=== PATIENT | female | born 1950 | race Caucasian/White ===

== ENCOUNTER 2020-08-12 13:36 | Outpatient (REF) | payer MEDICARE, SELFPAY ==
--- NOTE | 2020-08-12 13:43 | MM_ITS ---
EXAMINATION: MM SCREENING DIGITAL BREAST TOMOSYNTHESIS, BILATERAL CLINICAL INFORMATION: Screening. Asymptomatic. The lifetime risk of breast cancer based on the Tyrer-Cuzick Model is 3%. COMPARISON: Mammography: 02/04/2019, 01/24/2018, 01/16/2018, 01/03/2017 TECHNIQUE: Digital breast tomosynthesis is performed in both the craniocaudal and mediolateral oblique views along with computer-aided detection (CAD). Synthesized 2D images are generated from the tomosynthesis. FINDINGS: There are scattered areas of fibroglandular density (ACR BI-RADS breast composition Category b). There are no significant masses, abnormal calcifications, or other abnormalities. There is a biopsy clip marker again noted central right breast. Bilateral scattered round and some coarse calcifications are again present. There are no significant changes. MM/MM tomosynthesis screening BI IMPRESSION: No mammographic evidence of malignancy. ASSESSMENT: BI-RADS 2: Benign RECOMMENDATION: Routine annual mammography screening. This patient's information was entered into a reminder system with a target due date for their next mammogram.
== END 2020-08-12 13:37 | disposition home or self-care (01) ==
LOC: HO.MAMMO 13:36
PROVIDERS: PCP Internal Medicine; Visit Provider Internal Medicine
DX: Z12.31 Encounter for screening mammogram for malignant neoplasm of breast (principal)
CPT/HCPCS: 77063; 77067

== ENCOUNTER 2020-09-17 09:39 | Outpatient (REF) | payer MEDICARE, SELFPAY | END 2020-09-17 09:40 | disposition home or self-care (01) | LOC: HO.LAB 09:39 | PROVIDERS: Visit Provider Internal Medicine | DX: Z20.822 Contact with and (suspected) exposure to COVID-19 (principal) | CPT/HCPCS: 36415; C9803; U0003; U0005 ==

== ENCOUNTER 2021-03-19 08:59 | Outpatient (REF) | payer MEDICARE, SELFPAY ==
--- NOTE | ~2021-03-19 | MM_ITS ---
EXAMINATION: BONE DENSITOMETRY CLINICAL INDICATION: Osteopenia. COMPARISON: Previous BD dated 01/11/2018 and baseline BD dated 06/09/2006. TECHNIQUE: Using a [employer] DXA System (software version: 13.1) manufactured by [employer], dual-energy x-ray absorptiometry was performed of the spine and left hip. The images are of good technical quality. Summary results are attached. FINDINGS: AP SPINE L1-L4: Current: BMD 1.153 g/cm2, Z-score 1.3, T-score -0.2, normal, 4.8% increase from previous, 9.1% increase from baseline (<5% change is not significant). Prior: BMD 1.100 g/cm2. Baseline: BMD 1.057 g/cm2. LEFT FEMUR, NECK: Current: BMD 0.855 g/cm2, Z-score 0.3, T-score -1.3, osteopenia. Prior: BMD 0.769 g/cm2. Baseline: BMD 0.880 g/cm2. LEFT FEMUR, TOTAL: Current: BMD 1.025 g/cm2, Z-score 1.6, T-score 0.1, normal, 12.5% increase from previous, 1.2% decrease from baseline (<5% change is not significant). Prior: BMD 0.911 g/cm2. Baseline: BMD 1.037 g/cm2. IDENTIFIED RISK FACTORS: Low calcium intake, secondary osteoporosis. HISTORY OF FRACTURE: None listed. MEDICATIONS: Calcium supplements or multivitamin. MM/XR DEXA axial skeleton IMPRESSION: 1. DIAGNOSIS: Osteopenia based on the lowest T-score value of -1.3 in the femoral neck applying World Health Organization criteria. 2. 10-YEAR FRACTURE RISK PREDICTION, FRAX: Major osteoporotic fracture (clinical spine, forearm, hip or shoulder) 5.3%. Hip fracture 0.7%. 3. Treatment Recommendations: NOF guidelines recommend consideration for treatment in postmenopausal women and men age 50 and older presenting with the following: -A hip or vertebral (clinical or morphometric) fracture. -T-score less than or equal to -2.5 at the femoral neck or spine after appropriate evaluation to exclude secondary causes. -Low bone mass at the hip or spine and a 10-year fracture probability by FRAX of greater than or equal to 3% for hip fracture or greater than or equal to 20% for major osteoporotic fracture based on the [place] adapted WHO algorithm. 4. Other Recommendations: All treatment decisions require clinical judgment and consideration of individual patient factors, including patient preferences, comorbidities, previous drug use, risk factors not captured in the FRAX model (e.g. frailty, falls, vitamin D deficiency, increased bone turnover, interval significant decline in bone density) and possible under or overestimation of fracture risk by FRAX. Additional medical evaluation for secondary cause of low bone mineral density may be appropriate. FUTURE SCAN RECOMMENDATION: People with diagnosed cases of osteoporosis or at high risk for fracture should have regular bone mineral density tests. For patients eligible for Medicare, routine testing is allowed once every 2 years. The testing frequency can be increased to one year for patients who have rapidly progressing disease, those who are receiving or discontinuing medical therapy to restore bone mass, or have additional risk factors.
== END 2021-03-19 09:00 | disposition home or self-care (01) ==
LOC: HO.MAMMO 08:59
PROVIDERS: PCP Family Medicine; Visit Provider Family Medicine
DX: Z13.820 Encounter for screening for osteoporosis (principal); M85.80 Other specified disorders of bone density and structure, unspecified site; Z79.899 Other long term (current) drug therapy
CPT/HCPCS: 77080

== ENCOUNTER → 2021-08-24 11:56 | Outpatient (BNVA) | payer MEDICARE, SELFPAY | PROVIDERS: PCP Family Medicine; Visit Provider Surgery | DX: Z48.817 Encounter for surgical aftercare following surgery on the skin and subcutaneous tissue (principal) | CPT/HCPCS: 99202 ==

== ENCOUNTER 2021-08-26 11:10 | Outpatient (REF) | payer MEDICARE, SELFPAY ==
--- NOTE | ~2021-08-26 | MM_ITS ---
EXAMINATION: MM SCREENING DIGITAL BREAST TOMOSYNTHESIS, BILATERAL CLINICAL INFORMATION: Screening. Asymptomatic. The lifetime risk of breast cancer based on the Tyrer-Cuzick Model is 2.9%. COMPARISON: Mammography: 08/12/2020 and studies dating back to 09/20/2011 TECHNIQUE: Digital breast tomosynthesis is performed in both the craniocaudal and mediolateral oblique views along with computer-aided detection (CAD). Synthesized 2D images are generated from the tomosynthesis. FINDINGS: The breasts are heterogeneously dense, which may obscure small masses (ACR BI-RADS breast composition Category c). This is stable parenchymal pattern within the right breast without new abnormal dominant mass or suspicious grouping of microcalcifications. Within the retroareolar region of the left breast on mediolateral oblique projection there is a 7 mm density which is poorly circumscribed. Recommend spot compression view and possible ultrasound. MM/MM tomosynthesis screening BI IMPRESSION: Left breast retroareolar lesion for further evaluation as described. ASSESSMENT: BI-RADS 0: Incomplete - Need Additional Imaging Evaluation RECOMMENDATION: 1. Additional views of the left. 2. Targeted ultrasound if warranted after review of the additional views. 3. Radiology department staff will contact the patient for additional imaging.
== END 2021-08-26 11:11 | disposition home or self-care (01) ==
LOC: HO.MAMMO 11:10
PROVIDERS: Visit Provider Family Medicine
DX: Z12.31 Encounter for screening mammogram for malignant neoplasm of breast (principal)
CPT/HCPCS: 77063; 77067

== ENCOUNTER 2021-09-14 08:13 | Outpatient (REF) | payer MEDICARE, SELFPAY ==
--- NOTE | ~2021-09-14 | MM_ITS ---
EXAMINATION: MM DIAGNOSTIC DIGITAL BREAST TOMOSYNTHESIS, LEFT CLINICAL INFORMATION: Recall for asymmetric density on synthesized left CC view at screening 6:00 retroareolar. COMPARISON: Mammography: 08/26/2021, 08/12/2020, 02/04/2019, 01/24/2018 TECHNIQUE: Digital breast tomosynthesis is performed. 2D images are generated from the tomosynthesis. The following views are obtained: Spot CC x2, spot MLO x2. FINDINGS: The breasts are heterogeneously dense, which may obscure small masses (ACR BI-RADS breast composition Category c). Additional views show no persistent asymmetric density on synthesized image or tomography. There is no mass or architectural abnormality. Fibroglandular densities are similar to prior studies. Results are discussed with the patient at time of visit, using an supervising floorperson. MM/MM tomosynthesis added views L IMPRESSION: No significant changes from prior exams. ASSESSMENT: BI-RADS 2: Benign RECOMMENDATION: Routine annual mammography screening. This patient's information was entered into a reminder system with a target due date for their next mammogram.
== END 2021-09-14 08:14 | disposition home or self-care (01) ==
LOC: HO.MAMMO 08:13
PROVIDERS: Visit Provider Family Medicine
DX: R92.2 Inconclusive mammogram (principal)
CPT/HCPCS: 77061; 77065

== ENCOUNTER 2022-04-17 14:49 | Emergency (ER) | payer MEDICARE, SELFPAY ==
[2022-04-17 16:43] VITALS: BP 126/70; PULSE 78; RESP 16; O2SAT 97; BMI 27.4
[2022-04-17 18:50] VITALS: BP 128/73; PULSE 68; RESP 18; TEMP 36.3; O2SAT 97
--- NOTE | 2022-04-17 19:14 | ED.GENADULT ---
HPI - General Adult General Chief complaint: Skin/Abscess/Foreign Body Stated complaint: cyst on rectum Time Seen by Provider: 04/17/22 14:54 Source: patient and family Mode of arrival: ambulatory Limitations: no limitations History of Present Illness HPI narrative: 71-year-old female past medical history significant for hypertension, diabetes presenting to the emergency department with swelling, redness to the left labia majora times a week worsening. According to patient patient's family member this started as a small bump and then has progressed to the size it is now, reports pain at site, burning. Denies numbness, tingling, vaginal discharge, fevers, chills, chest pain, shortness of breath, nausea, vomiting, abdominal pain. Tells me she has gotten abscesses in the past throughout her body just never in that location. Patient up-to-date on tetanus shot. Onset (ago): week(s) (1) Related Data Home Medications Medication Instructions Recorded Confirmed alcohol swabs (Alcohol Prep Pads) 0 pad topical 08/24/21 amlodipine 5 mg tablet 5 mg PO DAILY 08/24/21 aspirin 81 mg tablet,delayed 81 mg PO DAILY 08/24/21 release atorvastatin 40 mg tablet 40 mg PO BEDTIME 08/24/21 blood sugar diagnostic (FreeStyle #10 ea 08/24/21 Lite Strips) calcium carbonate 600 mg-vitamin 1 tab PO 08/24/21 D3 10 mcg (400 unit) tablet cephalexin 500 mg capsule 500 mg PO Q12H 08/24/21 cetirizine 10 mg tablet 10 mg PO DAILY 08/24/21 citalopram 20 mg tablet 20 mg PO DAILY 08/24/21 dulaglutide 0.75 mg/0.5 mL mg subcut QWEEK 08/24/21 [facility] ezetimibe 10 mg tablet 10 mg PO DAILY 08/24/21 lancets 33 gauge (TRUEplus Lancets) #100 ea 08/24/21 losartan 100 1 tab PO DAILY 08/24/21 mg-hydrochlorothiazide 25 mg tablet metformin 1,000 mg tablet 1,000 mg PO 08/24/21 metoprolol succinate 25 mg 25 mg PO QAM 08/24/21 tablet,extended release 24 hr omeprazole 20 mg capsule,delayed 20 mg PO DAILY 08/24/21 release Previous Rx's Medication Instructions Recorded cephalexin 500 mg tablet 500 mg PO Q6H 10 days #40 tabs 04/17/22 doxycycline hyclate 100 mg capsule 100 mg PO BID 10 days #20 caps 04/17/22 Allergies Allergy/AdvReac Type Severity Reaction Status Date / Time No Known Allergies Allergy Unverified 04/30/20 16:56 [No Known Allergies*] Review of Systems Review of Systems: Constitutional : No Fever, No Chills, Cardiovascular : No Chest Pain, No SOB Respiratory : No Dyspnea Gastrointestinal : No abdominal pain Musculoskeletal : No Joint Swelling Skin : No rash, No skin laceration, + swelling to labia Neuro : No Weakness, No Numbness Psych : No SI/HI Yes all other systems are reviewed and are negative [facility] Past Medical History Attestation statement: The following information was validated with the patient. Source: old records reviewed and nursing notes reviewed Medical History Diabetes mellitus Epidermal cyst Hypertension Surgical History History of 2 sections Family History Family History Brother Colon cancer Social History Social History Alcohol intake: never Patient Tobacco Use Status: Never used Tobacco Advance Directives: No Advance Directives Information Provided: No Physical Exam ED Vital Signs: Vital Signs - 24 hr 04/17/22 16:43 04/17/22 18:50 Temperature 97.4 F Pulse Rate 78 68 Respiratory Rate 16 18 Blood Pressure 126/70 128/73 Pulse Oximetry 97 97 Oxygen Delivery Method Room Air Room Air BMI result Body Mass Index 27.4 vss Appearance: Alert.? Oriented X3.? No acute distress.? Head: Normocephalic, atraumatic, no step-offs or deformities Eyes: Pupils equal, round and reactive to light.? Neck: Normal inspection.? Neck supple.? CVS: Normal heart rate and rhythm.? Pulses normal.? Respiratory: No respiratory distress.? Breath sounds normal.? Abdomen: Soft and nontender.? Skin: Skin warm and dry.? Normal skin color.? Normal skin turgor.? Extremities: No lower extremity edema.? No calf ttp. 5/5 strength to bilateral upper and lower extremities Sensitive exam: cellulitis to the left labia majora, with induration, it appears as though there is slight purulence coming out from the middle of the left labia majora. Pain with palpation of left labia majora. Neuro: Oriented X 3.? No motor deficit.? No sensory deficit. CN 2-12 intact Course Reevaluation(s) Reevaluation #1: Advised patient to apply warm compresses to the area, patient will be discharged home with doxycycline and Keflex, I explained to patient that this is likely an abscess forming in she may need to come back for further evaluation and treatment. Patient verbalizes understanding and so does family member at the bedside. At this time patient will be discharged home on antibiotics, advised follow-up with PCP and return with any new or worsening symptoms. Time: 19:35 Medical Decision Making [facility] Narrative Medical decision making narrative: 1899 71-year-old female presents with redness, swelling warmth to the left labia majora times a week worsening. Physical examination significant for cellulitis to the left labia majora with induration, it appears as though there is a small area with some purulence that is self draining. Tried doing a bedside fine needle aspiration however unable to express purulence, this is likely cellulitis to the left labia majora or a forming abscess. Medical Records Medical records reviewed: Yes I reviewed the patient's medical records. Lab Data Lab results reviewed: Yes I reviewed the patient's lab results. Critical Care Time Critical Care Time Critical Care Time: No Discharge Plan Discharge Clinical Impression: Cellulitis of labia majora Patient Disposition: Home, Self-Care Additional Instructions: Take your medications as prescribed. If you were prescribed antibiotics today, it is important that you take your medication to their entirety, do not skip any doses, do not finish them early. Follow-up with your primary care provider this week. Return to the emergency department with new or worsening symptoms. Such as fevers, chills, chest pain, shortness of breath, nausea, vomiting, dizziness, headache, vision changes, lethargy In case of emergency call 911 Apply warm compresses to the affected area 3 to 4 times a day. Please take antibiotics as indicated. Hamer radha medicamentos seg?n lo prescrito. Si le recetaron antibi?ticos hoy, es importante que tome richardson medicamento en richardson totalidad, no se salte ninguna dosis, no los termine antes de tiempo. Seguimiento con richardson proveedor de atenci?n primaria esta semana. Regrese al departamento de emergencias con s?ntomas nuevos o que empeoran. [place] fiebre, escalofr?os, dolor de pecho, dificultad para respirar, n?useas, v?mitos, mareos, dolor de eyal, cambios en la visi?n, letargo En simone de emergencia llama al 911 Aplique compresas tibias en el ?chidi afectada de 3 a 4 veces al d?a. Por favor, tome los antibi?ticos seg?n lo indicado. Prescriptions: New doxycycline hyclate 100 mg capsule 100 mg PO BID 10 Days Qty: 20 0RF cephalexin 500 mg tablet 500 mg PO Q6H 10 Days Qty: 40 0RF No Action cetirizine 10 mg tablet 10 mg PO DAILY Trulicity 0.75 mg/0.5 mL pen injector subcut QWEEK metoprolol succinate 25 mg tablet extended release 24 hr 25 mg PO QAM metformin 1,000 mg tablet 1,000 mg PO citalopram 20 mg tablet 20 mg PO DAILY losartan-hydrochlorothiazide 100-25 mg tablet 1 tab PO DAILY (DME) lancets [TRUEplus Lancets] 33 gauge misc See Rx Instructions topical .MEDSUPPLY Qty: 100 Rx Instructions: As directed alcohol swabs [Alcohol Prep Pads] Pads, Medicated 0 pad topical atorvastatin 40 mg tablet 40 mg PO BEDTIME (DME) FreeStyle Lite Strips Strip See Rx Instructions Not Applicable BID Qty: 10 Rx Instructions: As directed calcium carbonate-vitamin D3 600 mg-10 mcg (400 unit) tablet 1 tab PO aspirin 81 mg tablet,delayed release (DR/EC) 81 mg PO DAILY ezetimibe 10 mg tablet 10 mg PO DAILY amlodipine 5 mg tablet 5 mg PO DAILY cephalexin 500 mg capsule 500 mg PO Q12H omeprazole 20 mg capsule,delayed release(DR/EC) 20 mg PO DAILY Referrals: Almita De La O MD [Primary Care Provider] - 2 days Iglesia Lozano MD [Physician] - 1 week Stand Alone Forms: Work/School Release Print Language: Trinidadian
== END 2022-04-17 19:53 | disposition home or self-care (01) ==
PROVIDERS: Emergency Provider Internal Medicine; PCP Family Medicine
DX: N76.2 Acute vulvitis (principal); K62.89 Other specified diseases of anus and rectum; Z79.899 Other long term (current) drug therapy
CPT/HCPCS: 99283

== ENCOUNTER → 2022-08-03 09:36 | Outpatient (BNVA) | payer OTHER, SELFPAY | PROVIDERS: PCP Registered Nurse; Referring Provider Registered Nurse; Visit Provider Physician Assistant Surgical | DX: Z01.818 Encounter for other preprocedural examination (principal); Z80.0 Family history of malignant neoplasm of digestive organs | CPT/HCPCS: 99212 ==

== ENCOUNTER 2022-08-31 13:25 | Outpatient (REF) | payer OTHER, SELFPAY ==
--- NOTE | ~2022-08-31 | MM_ITS ---
EXAMINATION: MM SCREENING DIGITAL BREAST TOMOSYNTHESIS, BILATERAL CLINICAL INFORMATION: Screening. Asymptomatic. The lifetime risk of breast cancer based on the Tyrer-Cuzick Model is 2.8%. COMPARISON: Mammography: 09/14/2021 and studies dating back to 12/25/2015 TECHNIQUE: Digital breast tomosynthesis is performed in both the craniocaudal and mediolateral oblique views along with computer-aided detection (CAD). Synthesized 2D images are generated from the tomosynthesis. FINDINGS: The breasts are heterogeneously dense, which may obscure small masses (ACR BI-RADS breast composition Category c). There is a stable parenchymal pattern of the right breast with scattered calcifications. No new abnormal dominant mass or more suspicious grouping of calcifications identified. Within the deep superomedial aspect of the left breast, there is a density containing indeterminate calcifications for which spot magnification views are recommended in craniocaudal and 90 degree mediolateral views. MM/MM tomosynthesis screening BI IMPRESSION: Left breast density with calcifications for which further evaluation is recommended as described above. ASSESSMENT: BI-RADS 0: Incomplete - Need Additional Imaging Evaluation RECOMMENDATION: 1. Additional views of the left breast 2. Targeted ultrasound if warranted after review of the additional views. 3. Radiology department staff will contact the patient for additional imaging.
== END 2022-08-31 13:26 | disposition home or self-care (01) ==
LOC: HO.MAMMO 13:25
PROVIDERS: PCP Registered Nurse; Visit Provider Registered Nurse
DX: Z12.31 Encounter for screening mammogram for malignant neoplasm of breast (principal)
CPT/HCPCS: 77063; 77067

== ENCOUNTER 2022-09-23 06:38 | Day surgery (SDC) | payer OTHER, SELFPAY ==
[2022-09-23 06:58] VITALS: BP 136/79; PULSE 73; RESP 18; TEMP 36.8; O2SAT 97; BMI 27.8
[2022-09-23 07:05] LABS: Glucose, Whole Blood 123 mg/dL (60-115)
[2022-09-23] MEDS: Lactated Ringers 1,000 ML 50 ML IVCONT (07:16)
--- NOTE | 2022-09-23 07:20 | HO.ANESPROP2 ---
HPI - Anesthesia Eval Consult details Narrative: colonoscopy PMFSH Active Problems Active Problems: All Active Problems (Updated 09/19/22 @ 11:42 by Morelia Malik, RN) Encounter for colonoscopy in patient with family history of colon cancer (Acute) Epidermal cyst (Acute) Hypertension (Acute) Diabetes mellitus (Acute) Past Medical History Medical History (Updated 09/19/22 @ 11:42 by Morelia Malik RN) Arthritis Diabetes mellitus Elevated cholesterol Epidermal cyst Hypertension On beta maricel at home Osteoporosis Family History Family History Brother Colon cancer Paternal Uncle Colon cancer, Onset Age: 93 Family history of problems with anesthesia: No Surgical History Surgical History (Updated 09/19/22 @ 11:42 by Morelia Malik RN) History of 2 sections History of cholecystectomy History of colonoscopy (06/19/17) History of ERCP Hx of breast biopsy History of Problems with Anesthesia: No Social History Social History Alcohol intake: never Patient Tobacco Use Status: Never used Tobacco Are you DNR?: No Advance Directives: No Advance Directives Information Provided: Yes Recently lost weight without trying: No Nutrition Risks: No Nutritional Risk Meds Allergies Allergy/AdvReac Type Severity Reaction Status Date / Time No Known Allergies Allergy Unverified 09/19/22 11:47 [No Known Allergies*] Active Medications: Current Medications Lactated Ringer's (Lr) 1,000 mls @ 50 mls/hr IVCONT .Q20H GUILLERMO Last Admin: 09/23/22 07:16 Dose: 50 mls/hr Home Medications Medication Instructions Recorded Confirmed Last Taken Type alcohol swabs (Alcohol Prep Pads) 0 pad topical 08/24/21 Unknown History amlodipine 5 mg tablet 5 mg PO DAILY 08/24/21 09/19/22 Unknown History aspirin 81 mg tablet,delayed 81 mg PO DAILY 08/24/21 09/19/22 Unknown History release atorvastatin 40 mg tablet 40 mg PO BEDTIME 08/24/21 09/19/22 Unknown History blood sugar diagnostic (FreeStyle #10 ea 08/24/21 Unknown History Lite Strips) calcium carbonate 600 mg-vitamin 1 tab PO 08/24/21 Unknown History D3 10 mcg (400 unit) tablet cetirizine 10 mg tablet 10 mg PO DAILY 08/24/21 09/19/22 Unknown History citalopram 20 mg tablet 20 mg PO DAILY 08/24/21 09/19/22 Unknown History dulaglutide 0.75 mg/0.5 mL 0.75 mg subcut QWEEK 08/24/21 09/19/22 Unknown History subcutaneous pen injector (Trulicity) ezetimibe 10 mg tablet 10 mg PO DAILY 08/24/21 09/19/22 Unknown History lancets 33 gauge (TRUEplus Lancets) #100 ea 08/24/21 Unknown History losartan 100 1 tab PO DAILY 08/24/21 09/19/22 Unknown History mg-hydrochlorothiazide 25 mg tablet metformin 1,000 mg tablet 1,000 mg PO 08/24/21 Unknown History metoprolol succinate 25 mg 25 mg PO QAM 08/24/21 09/19/22 Unknown History tablet,extended release 24 hr omeprazole 20 mg capsule,delayed 20 mg PO DAILY 08/24/21 09/19/22 Unknown History release Exam Exam Date and Time: September 23, 2022 0720 Height,Weight and Vital Signs: Height 5 ft 2 in Weight 68.946 kg Last Vital Signs Temp 98.3 F 09/23/22 06:58 Pulse 73 09/23/22 06:58 Resp 18 09/23/22 06:58 BP 136/79 09/23/22 06:58 Pulse Ox 97 09/23/22 06:58 O2 Del Method 09/23/22 06:58 Pertinent Lab Results Pertinent Lab Results: Laboratory Tests 09/23/22 07:00 POC Glucose 123 H Airway Mallampati Class: II TM Dist: >3cm Neck ROM: Full Heart: rrr Lungs: cta Assessment and Plan Assessment Anesthesia Assessment: Anesthesia Plan Discussed and Chart Reviewed Final Anesthetic Review Family History of Problems with Anesthesia: No History of Problems with Anesthesia: No NPO: Yes ASA Class: III Final Preanesthetic Review: No Changes in Pt Med Stat, Meds/Allgs Chart Reviewed and Anes Risks/Benef Reviewed Patient Risk: Intermediate Procedure Risk: Low Anesthetic Plan Anesthetic Plan: MAC: and Agree w/ Assess. and Plan Disposition: Standard PACU
--- NOTE | 2022-09-23 08:21 | P.HPSUR_ITS ---
Pre-Procedural Eval Section A Date of Service: 09/23/22 Section B Chief Complaint: screening,fam hx Details of Present Illness: HAS family history of colon cancer, undergoes colonoscopy every 5 years Relevant Family History (Specify if Yes): Yes Relevant Social History: None Present Medications: see Short Stay Collaborative assessment Medical History: Significant History ( diabetes, hypertension) Allergies: Allergies Allergy/AdvReac Type Severity Reaction Status Date / Time No Known Allergies Allergy Unverified 09/19/22 11:47 [No Known Allergies*] Review of Systems Sugical H&P ROS: Negative: Constitution, Cardiovascular, Respiratory, Neurologi rubén, Psychiatric, Hem-Onc, Allergic/Immunologic, Gastrointestinal, Genitourinary, Musculoskeletal, Integumentary, Endocrine and Eyes/Ears/Nose/Throat Exam Surgical H&P Exam: Normal: HEENT, Normal: Heart, Normal: Lungs, Normal: Extremities, Normal: Abdomen, Normal: Skin and Normal: Neurological Plan I have reviewed the history and physical and performed a pertinent physical examination on my patient. No changes have occurred unless specified. Time Spent With Patient Time: Total time managing care of this patient today ____ minutes.
--- NOTE | 2022-09-23 09:05 | P.OP_ITS ---
Operative Note Operative Note Date of Service: 09/23/22 Narrative: Preop diagnosiss: Family history of colon cancer Postop diagnosis: The same with normal colonoscopy findings Procedure: Colonoscopy for screening Surgeon: Juan Schultz MD The patient is a 72 year old female with a family history of colon cancer and undergo screening colonoscopy every 5 years. She understood the technique of the procedure as well as the risks, benefits, and alternatives. The patient was brought to the operating room and placed in left lateral decubitus position under monitored anesthesia care. A surgical time-out was done. A full digital rectal exam was done and this did not reveal any s ignificant anal lesions. The tip of the Olympus colonoscope was gently introduced through the anal orifice advanced with insufflation all the way to the cecum. The cecum was intubated. There was note of a lot of looping advancing the scope all the way to the cecum was achieved with some degree of difficulty. The cecum was identified by visualization of the ileocecal valve as well as the appendiceal orifice. The cecal mucosa was unremarkable. The scope was gradually withdrawn with careful examination of the entire colonic mucosa being done with scope withdrawal. The patient had adequate bowel prep so it was unlikely that any lesion may have been missed. The rectum was reached and there were no lesions seen. The anal canal was unremarkable. The scope was then withdrawn completely with desufflation The patient tolerated procedure well. There were no immediate complications. Her next colonoscopy may be in the next 5 years if s is still in good health at that time..
[2022-09-23 09:13] VITALS: BP 107/56; PULSE 88; RESP 18; TEMP 36.8; O2SAT 96
[2022-09-23 09:28] VITALS: BP 111/54; PULSE 77; RESP 16; TEMP 36.7; O2SAT 96
[2022-09-23 09:43] VITALS: BP 131/69; PULSE 80; RESP 16; TEMP 36.7; O2SAT 98
== END 2022-09-23 10:08 | disposition home or self-care (01) ==
PROVIDERS: PCP Registered Nurse; Visit Provider Surgery
PROC: 0DJD8ZZ Inspection of Lower Intestinal Tract, Via Natural or Artificial Opening Endoscopic (ICD-10-PCS; CPT 45378; principal; 2022-09-23 08:20)
DX: Z12.11 Encounter for screening for malignant neoplasm of colon (principal); Z80.0 Family history of malignant neoplasm of digestive organs; I10 Essential (primary) hypertension; E11.9 Type 2 diabetes mellitus without complications; Z79.85 Long-term (current) use of injectable non-insulin antidiabetic drugs; Z79.899 Other long term (current) drug therapy; Z90.49 Acquired absence of other specified parts of digestive tract
CPT/HCPCS: G0105; 82947

== ENCOUNTER 2022-10-17 12:44 | Outpatient (REF) | payer OTHER, SELFPAY ==
--- NOTE | ~2022-10-17 | MM_ITS ---
EXAMINATION: MM DIAGNOSTIC DIGITAL MAMMOGRAPHY, LEFT CLINICAL INFORMATION: Recall from screening for calcifications posterior 11:00 left breast. COMPARISON: Mammography: 08/31/2022, 09/14/2021, 08/26/2021, 08/12/2020 TECHNIQUE: Digital mammography is performed in the following views: Magnification left CC x2, magnification left LM. FINDINGS: The breasts are heterogeneously dense, which may obscure small masses (ACR BI-RADS breast composition Category c). The additional magnification views confirm grouped heterogeneous calcifications posterior 11:00 position. There are some coarse types as well as fine types. On the LM view, they appear circumferentially arranged and possibly related to fibroadenomatous change. Results are discussed with the patient at time of visit, using an motor vehicle assembler. Stereotactic sampling to confirm benignity is recommended. Results called to biomedical equipment support specialist (Lise) for JOSÉ MANUEL Escoto on 10/17/2022. MM/MM added views LT IMPRESSION: Increased heterogeneous calcifications posterior 11:00, possibly fibroadenomatous change. ASSESSMENT: BI-RADS 4: Suspicious (subcategory 4A: Low suspicion for malignancy) RECOMMENDATION: Stereotactic sampling left breast calcifications.
== END 2022-10-17 12:45 | disposition home or self-care (01) ==
LOC: HO.MAMMO 12:44
PROVIDERS: PCP Registered Nurse; Visit Provider Registered Nurse
DX: R92.2 Inconclusive mammogram (principal); R92.1 Mammographic calcification found on diagnostic imaging of breast
CPT/HCPCS: 77065

== ENCOUNTER 2022-10-19 08:54 | Outpatient (REF) | payer OTHER, SELFPAY ==
--- NOTE | ~2022-10-19 | MM_ITS ---
EXAMINATION: STEREOTACTIC TOMOSYNTHESIS-GUIDED VACUUM-ASSISTED BREAST BIOPSY, LEFT SPECIMEN RADIOGRAPH, LEFT POST PROCEDURE DIGITAL MAMMOGRAM, LEFT CLINICAL INFORMATION: Heterogeneous calcifications posterior 11:00, possibly fibroadenomatous change. COMPARISON: Prior mammography, most recent 10/17/2022. TECHNIQUE/PROCEDURE: Hospital provided american sign language interpreter assisted for the consent and throughout the procedure. Informed consent was obtained from the patient after discussion of the benefits, risks, and alternatives to biopsy today. Patient appeared to understand. Gave opportunity for questions. Patient signed consent form. BIOPSY TABLE: [employer] Affirm Prone Biopsy System. LESION: Grouped heterogeneous calcifications posterior upper inner left breast. LOCAL ANESTHESIA: 10 mL carbonated 1% lidocaine; 10 mL 2% lidocaine with epinephrine. DERMATOTOMY: Single skin emily dermatotomy performed. NEEDLE: A-STARiva 9-gauge vacuum assisted core biopsy device. APPROACH: Medial Lateral. TARGETING: Combination of digital breast tomosynthesis and stereotactic digital mammography used for targeting. CORES: 5. CLIP: HandInScanurMark T-shaped marker. SPECIMEN RADIOGRAPH: Specimen radiograph is taken in separate room using digital mammography. The index calcifications are in the excised cores. There are large number calcifications seen grouped in 2 of the cores. POST PROCEDURE UNILATERAL DIGITAL MAMMOGRAM: The post biopsy mammogram is performed in separate room using separate digital mammography equipment from the biopsy procedure. CC and LM views are obtained. The breasts are heterogeneously dense, which may obscure small masses (breast composition category: c). The clip marker is in position. The calcifications are markedly decreased at the biopsy site and no longer clearly visualized. No gross hematoma. The patient tolerated the procedure well. No immediate complications. Home instructions reviewed with the patient. Final pathology results are pending. MM/MM stereotactic biopsy LT IMPRESSION: 1. Digital tomosynthesis-guided core biopsy left breast with clip placement. 2. Specimen radiograph taken and post procedure mammogram. There is satisfactory positioning of the biopsy clip. 3. Final pathology results pending. An addendum report will be issued.
[2022-10-19] MEDS: Lidocaine HCl 1 % 20 ML VIAL 9 ML SUBCUT (10:29)
[2022-10-19] MEDS: Sodium Bicarbonate 8.4% 50 MEQ/50 ML VIAL SUBCUT (10:30)
== END 2022-10-19 08:55 | disposition home or self-care (01) ==
LOC: HO.MAMMO 08:54
PROVIDERS: PCP Registered Nurse; Visit Provider Surgery
DX: R92.1 Mammographic calcification found on diagnostic imaging of breast (principal); Z79.899 Other long term (current) drug therapy
CPT/HCPCS: 19081; 88305; 99202; A4648

== ENCOUNTER → 2022-10-26 09:51 | Outpatient (BNVA) | payer OTHER, SELFPAY | PROVIDERS: PCP Registered Nurse; Visit Provider Surgery | DX: Z12.11 Encounter for screening for malignant neoplasm of colon (principal); R92.1 Mammographic calcification found on diagnostic imaging of breast; Z80.0 Family history of malignant neoplasm of digestive organs | CPT/HCPCS: 99212 ==

== ENCOUNTER 2023-09-01 19:31 | Outpatient (REF) | payer OTHER, SELFPAY | END 2023-09-01 19:32 | disposition home or self-care (01) | LOC: HO.HHCLNP 19:31 | PROVIDERS: Visit Provider Family Medicine | DX: J02.9 Acute pharyngitis, unspecified (principal) | CPT/HCPCS: 87070 ==

== ENCOUNTER 2023-09-21 09:35 | Outpatient (REF) | payer OTHER, SELFPAY ==
--- NOTE | ~2023-09-21 | MM_ITS ---
EXAMINATION: BONE DENSITOMETRY CLINICAL INDICATION: Post menopausal. Risk for bone loss. COMPARISON: Previous BD dated 03/19/2021 and baseline BD dated 06/09/2006. TECHNIQUE: Using a [employer] DXA System (software version: 13.1) manufactured by [employer], dual-energy x-ray absorptiometry was performed of the lumbar spine and left hip. The images are of good technical quality. Summary results are attached. FINDINGS: AP SPINE L1-L4: Current: BMD 1.254 g/cm2, Z-score 2.2, T-score 0.6, normal, 8.8% increase from previous, 18.6% increase from baseline (<5% change is not significant). Prior: BMD 1.153 g/cm2. Baseline: BMD 1.057 g/cm2. LEFT FEMUR, NECK: Current: BMD 0.894 g/cm2, Z-score 0.7, T-score -1.0, normal. Prior: BMD 0.855 g/cm2. Baseline: BMD 0.880 g/cm2. LEFT FEMUR, TOTAL: Current: BMD 0.999 g/cm2, Z-score 1.5, T-score -0.1, normal, 2.5% decrease from previous, 3.7% decrease from baseline (<5% change is not significant). Prior: BMD 1.025 g/cm2. Baseline: BMD 1.037 g/cm2. IDENTIFIED RISK FACTORS: Osteoporosis. Renal disease. Menopause. HISTORY OF FRACTURE: None listed. MEDICATIONS: Vitamin D. MM/XR DEXA axial skeleton IMPRESSION: 1. DIAGNOSIS: Normal bone density based on the lowest T-score value of -1.0 in the femoral neck applying World Health Organization criteria. 2. 10-YEAR FRACTURE RISK PREDICTION, FRAX: According to the guidelines, FRAX calculation should only be performed on patients in the osteopenia bone density category.?Therefore, FRAX was not performed on this patient.? 3. Treatment Recommendations: NOF guidelines recommend consideration for treatment in postmenopausal women and men age 50 and older presenting with the following: -A hip or vertebral (clinical or morphometric) fracture. -T-score less than or equal to -2.5 at the femoral neck or spine after appropriate evaluation to exclude secondary causes. -Low bone mass at the hip or spine and a 10-year fracture probability by FRAX of greater than or equal to 3% for hip fracture or greater than or equal to 20% for major osteoporotic fracture based on the [place] adapted WHO algorithm. 4. Other Recommendations: All treatment decisions require clinical judgment and consideration of individual patient factors, including patient preferences, comorbidities, previous drug use, risk factors not captured in the FRAX model (e.g. frailty, falls, vitamin D deficiency, increased bone turnover, interval significant decline in bone density) and possible under or overestimation of fracture risk by FRAX. FUTURE SCAN RECOMMENDATION: People with diagnosed cases of osteoporosis or at high risk for fracture should have regular bone mineral density tests. For patients eligible for Medicare, routine testing is allowed once every 2 years. The testing frequency can be increased to one year for patients who have rapidly progressing disease, those who are receiving or discontinuing medical therapy to restore bone mass, or have additional risk factors.
--- NOTE | ~2023-09-21 | MM_ITS ---
EXAMINATION: MM SCREENING DIGITAL BREAST TOMOSYNTHESIS, BILATERAL CLINICAL INFORMATION: Screening. Asymptomatic. COMPARISON: Mammography: This study is compared with prior exams dating back to 2019. TECHNIQUE: Digital breast tomosynthesis is performed in both the craniocaudal and mediolateral oblique views along with computer-aided detection (CAD). Synthesized 2D images are generated from the tomosynthesis. FINDINGS: The breasts are heterogeneously dense, which may obscure small masses (ACR BI-RADS breast composition Category c). There are no significant masses, abnormal calcifications, or other abnormalities. There is a tissue marker present in each breast from prior benign percutaneous biopsies. There are a few, bilateral, benign calcifications in each breast. MM/MM tomosynthesis screening BI IMPRESSION: No mammographic evidence of malignancy. ASSESSMENT: BI-RADS BI-RADS 2 - Benign Findings RECOMMENDATION: Routine annual mammography screening. 1 year F/U This examination should not preclude the clinical evaluation of a suspicious palpable abnormality. This patient's information was entered into a reminder system with a target due date for their next mammogram.
== END 2023-09-21 09:36 | disposition home or self-care (01) ==
LOC: HO.MAMMO 09:35
PROVIDERS: PCP Nurse Practitioner Family; Visit Provider Nurse Practitioner Family
DX: Z12.31 Encounter for screening mammogram for malignant neoplasm of breast (principal); Z13.820 Encounter for screening for osteoporosis; Z78.0 Asymptomatic menopausal state; Z91.89 Other specified personal risk factors, not elsewhere classified
CPT/HCPCS: 77063; 77067; 77080

== ENCOUNTER → 2023-09-21 10:30 | Outpatient (BNV) | payer OTHER, SELFPAY | PROVIDERS: PCP Nurse Practitioner Family; Visit Provider Radiology Diagnostic Radiology | DX: Z12.31 Encounter for screening mammogram for malignant neoplasm of breast (principal) | CPT/HCPCS: 77063; 77067 ==

== ENCOUNTER 2023-11-14 13:17 | Outpatient (REF) | payer OTHER, SELFPAY ==
--- NOTE | ~2023-11-14 | XR_ITS ---
EXAMINATION: XR LUMBOSACRAL SPINE CLINICAL INFORMATION: Bilateral lower back pain. COMPARISON: None available. TECHNIQUE: AP and lateral views of the lumbar spine and lateral view of the lumbosacral junction. FINDINGS: There is moderate degenerative disc disease at T11-T12. There is a very mild T12 upper endplate compression fracture. A moderate L1 upper endplate compression fracture is seen. There is a very mild L4 upper endplate compression fracture. The remaining disc spaces are well-maintained. The posterior elements are intact. The paravertebral soft tissues are unremarkable. There are right upper quadrant surgical clips. XR/XR lumbar spine 2-3V IMPRESSION: 1. A moderate L1 upper endplate compression fracture is seen, and very mild T12 and L4 upper endplate compression fractures are seen. 2. There is moderate degenerative disc disease at T11-T12.
== END 2023-11-14 13:18 | disposition home or self-care (01) ==
LOC: HO.HHCX 13:17
PROVIDERS: Visit Provider Family Medicine
DX: M54.50 Low back pain, unspecified (principal)
CPT/HCPCS: 72100

== ENCOUNTER 2024-01-30 11:18 | Outpatient (RCR) | payer OTHER, SELFPAY | END 2024-03-25 15:56 | disposition home or self-care (01) | LOC: HO.PT 11:18 | PROVIDERS: PCP Nurse Practitioner Family; Visit Provider Physician Assistant | DX: M54.50 Low back pain, unspecified (principal) | CPT/HCPCS: 97110; 97161; 97535 ==

== ENCOUNTER 2024-02-16 10:09 | Outpatient (REF) | payer OTHER, SELFPAY ==
[2024-02-16 11:14] LABS: MANUAL DIFF FLAG NO
[2024-02-16 11:31] LABS: Basophils Absolute Auto 0.1 X10*3/uL (0.0-0.2); Basophils Percent Auto 0.7 % (0-2); Eosinophils Absolute Auto 0.1 X10*3/uL (0.0-0.4); Eosinophils Percent Auto 1.7 % (0-4); Hematocrit 37.1 % (37.0-47.0); Imm Gran Abs Auto 0.03 X10*3/uL (0.00-0.03); Imm Gran Pct Auto 0.4 % (0.0-0.4); Lymphocytes Absolute Auto 1.8 X10*3/uL (1.2-4.9); Lymphocytes Percent Auto 24.4 % (20-40); Mean Corpuscular HGB Conc 32.3 g/dl (31.0-35.0); Mean Corpuscular Hemoglobin 29.8 pg (27.0-33.0); Mean Corpuscular Volume 92.1 fL (80.0-98.0); Mean Platelet Volume 9.5 fL (9.4-12.3); Monocytes Absolute Auto 0.4 X10*3/uL (0.1-1.2); Neutrophils Absolute Auto 4.8 x10*3/uL (2.0-8.3); Neutrophils Percent Auto 66.8 % (45-73); Platelet Count 185 X10*3/uL (160-400); Red Blood Count 4.03 X10*6/uL (4.20-5.50); Red Cell Distribution Width 13.1 % (11.0-16.0); White Blood Count 7.2 X10*3/uL (4.8-10.8)
[2024-02-16 11:40] LABS: Alanine Aminotransferase 15 U/L (0-31); Albumin Level 4.4 g/dL (3.5-5.0); Alkaline Phosphatase 56 U/L (39-117); Anion Gap 12 (12-20); Aspartate Amino Transferase 19 U/L (5-31); Bilirubin Total 0.5 mg/dL (0.0-1.0); Blood Urea Nitrogen 16 mg/dL (9-16); Calcium 10.2 mg/dL (8.4-10.2); Carbon Dioxide 28 mmol/L (22-29); Chloride 105 mmol/L (96-108); Cholesterol 146 mg/dL (<200); Estimated Glomerular Filt Rate 60; Glucose Random 98 mg/dL (60-115); HDL Cholesterol 61 mg/dL (>40); LDL Cholesterol Calculated 65 mg/dL (<100); Potassium 3.9 mmol/L (3.3-5.1); Sodium 141 mmol/L (135-145); Total Protein 7.6 g/dL (6.5-8.0); Triglycerides 101 mg/dL (<150)
[2024-02-16 11:58] LABS: Creatinine Urine 132.99 mg/dL; Microalbum/Creatinine Ratio Ur 11.2 ug/mg cr (<30); Vitamin B12 342 pg/mL (200-900)
== END 2024-02-16 10:10 | disposition home or self-care (01) ==
LOC: HO.HHCL 10:09
PROVIDERS: Visit Provider Nurse Practitioner Family
DX: E11.9 Type 2 diabetes mellitus without complications (principal)
CPT/HCPCS: 36415; 80053; 80061; 82043; 82570; 82607; 85025

== ENCOUNTER 2024-09-26 09:37 | Outpatient (REF) | payer OTHER, SELFPAY ==
--- OUTSIDE RECORDS SUMMARY | 2024-09-26 10:10 | XMS_ITS | Clinical Summary ---
Author Organization [employer] Address [address] [facility] [address] [place] [address] Care Team Providers Care Remote Operations Producer Name Role Phone Kerrie Wagner MD Primary Care Provider + Allergies No known active allergies Medications Calcium Carb-Cholecalci ferol 600-10 MG-MCG tabletIndicatio ns:Osteopenia of neck of left femur Take 1 tablet by mouth in the morning. TAKE 1 TABLET BY MOUTH EVERY MORNING 90 tablet 024 2024 Active Alcohol Swabs (SM Alcohol Prep) 70 % padsIndications :Type 2 diabetes mellitus with other specified complication, without long-term current use of insulin ([facility]) USE TWICE DAILY 100 each Active TRUEplus Lancets 33G miscIndications :Type 2 diabetes mellitus with other specified complication, without long-term current use of insulin ([facility]/HCC) TEST BLOOD SUGAR TWICE DAILY 100 each Active semaglutide (Ozempic, 0.25 or 0.5 MG/DOSE,) 2 MG/1.5ML solution pen-injectorInd ications:Type 2 Diabetes Mellitus Inject 0.5mg subcutaneously q week after 1.5 mL Active Diclofenac Sodium 1 % gel Apply 2 g topically if needed in the morning, at noon, in the evening, and at bedtime (pain). 150 g 1 Active citalopram (CeleXA) 20 MG tabletIndicatio ns:Moderate episode of recurrent major depressive disorder (CMS/HCC) TAKE 1 TABLET BY MOUTH EVERY MORNING 90 tablet 3 Active losartan-hydroC HLOROthiazide (Hyzaar) 100-25 MG tablet Take 1 tablet by mouth in the morning. 90 tablet 3 024 Active baclofen (Lioresal) 10 MG tablet TAKE 1/2 TABLET BY MOUTH THREE TIMES DAILY IN THE MORNING, AT NOON, AND AT BEDTIME NEEDED FOR MUSCLE SPASMS 30 tablet 1 024 Active amLODIPine (Norvasc) 5 MG tabletIndicatio ns:Primary hypertension TAKE 1 TABLET BY MOUTH EVERY EVENING 90 tablet 1 024 Active Aspirin Low Dose 81 MG EC tablet TAKE 1 TABLET BY MOUTH EVERY MORNING 90 tablet 3 024 Active ezetimibe (Zetia) 10 MG tablet TAKE 1 TABLET BY MOUTH EVERY EVENING 90 tablet 3 024 Active acetaminophen (Tylenol 8 Hour) 650 MG ER tablet TAKE 1 TABLET BY MOUTH EVERY 8 HOURS NEEDED FOR MILD PAIN 40 tablet 1 024 Active atorvastatin (Lipitor) 40 MG tablet TAKE 1 TABLET BY MOUTH EVERY EVENING 90 tablet 025 Active cetirizine (ZyrTEC) 10 MG tabletIndicatio ns:Seasonal allergic rhinitis, unspecified trigger TAKE 1 TABLET BY MOUTH EVERY MORNING NEEDED 90 tablet 1 025 Active metFORMIN (Glucophage) 1000 MG tablet TAKE 1 TABLET BY MOUTH TWICE DAILY IN THE MORNING AND IN THE EVENING WITH FOOD 180 tablet 025 Active metoprolol succinate XL (Toprol-XL) 25 MG 24 hr tablet TAKE 1 TABLET BY MOUTH EVERY MORNING 90 tablet 025 Active FREESTYLE LITE test stripIndication s:Type 2 diabetes mellitus with diabetic polyneuropathy, without long-term current use of insulin ([facility]) TEST BLOOD SUGAR TWICE DAILY 50 strip 025 Active glucose blood (FREESTYLE LITE) test stripIndication s:Type 2 diabetes mellitus with diabetic polyneuropathy, without long-term current use of insulin ([facility]) TEST BLOOD SUGAR TWICE DAILY 50 strip 024 2024 Discontinued Active Problems Problem Noted Date Diagnosed Date Periorbital cellulitis 05/06/2024 Assessment & Plan (05/08/2024 6:26 PM EDT): See above, will treat with keflex Blepharoconjunctivitis of both eyes 05/06/2024 Assessment & Plan (05/08/2024 6:26 PM EDT): While this may be allergic it is rapidly progressing, Will treat for possible cellulitis, Rtc in 7 days sooner should symptoms worsen Thrush of mouth and esophagus 05/06/2024 Assessment & Plan (05/08/2024 6:27 PM EDT): Suspect thrush may be contributing to sore throat, Rx as written below Sore throat 05/06/2024 Missing teeth, acquired 05/10/2023 Tipped teeth 05/10/2023 Dental caries 05/10/2023 Dental abscess 05/10/2023 Breast calcification, left 02/22/2023 Overview (03/26/2023): 10/17/22; BI-RADS 4: Suspicious (subcategory 4A: Low suspicion for malignancy) RECOMMENDATION: Stereotactic sampling left breast calcifications. 10/19/22: Biopsy left grouped heterogenous calcifications at he 11 o'clock Left breast; performed 10/26/22: Pathology sclerosis fibroadenoma; benign. Repeat routine mammogram screening 10/2023 Health care maintenance 11/23/2022 Overview (02/22/2023): Immunizations: PCV20 11/23/22, Tdap 03/01/22. Due for Hep B booster series, Dose #1 02/22/23 HIV: 02/15/22 Nonreactive Hep C: 11/23/22 Nonreactive Hepatitis B: 11/18/22 no surface antibodies. Due Booster series. Pap Smear: No records. Discuss at followup Shared decision-making guidelines. ACS: age 25-65 HPV swab every 5 years. USPSTF: age 21-25 cytology only q 3 y; age 25-29 cytology w/ reflex HPV q 3 y; age 30-65 PAP w/ HPV cotest q 5 years. Mammogram: 10/17/22; BI-RADS 4: Suspicious (subcategory 4A: Low suspicion for malignancy) RECOMMENDATION: Stereotactic sampling left breast calcifications. Scheduled for 10/19/22 10/19/22: Biopsy left grouped heterogenous calcifications at he 11 o'clock Left breast; performed 10/26/22: Pathology sclerosis fibroadenoma; benign. Repeat routine mammogram screening 10/2023 BMD 03/19/21 T score -1.3 left femur neck. Repeat in 2-3 years. Colonoscopy: Referred 07/12/22. Performed 09/28/22; normal. Family hx of colon cancer brother recommended colonoscopy every 5 years. Eye exam: up to date 2021, has new eyeglasses Dental: 09/19/22 Osteopenia of neck of left femur 11/23/2022 Overview (02/22/2023): Continue Ca/Vit D3 1 tablet daily Decreased dose resolved constipation problem. BMD 03/19/21 T score -1.3 left femur neck. Repeat in 2-3 years. Assessment & Plan (02/22/2023 10:09 AM EDT): Pt forgetting to take daily Vit D level 11/23/22 was low, 19 Will Rx Vit D 25mcg daily to take in addition to Ca/VitD 600 mg-10 mcg Encouraged pt to take Calcium pill daily or at least every other day F/u 3 months with new PCP or sooner PRN Dental calculus 09/19/2022 Periodontal disease 09/19/2022 Generalized gingival recession, severe 3 Gingival bleeding 09/19/2022 Gastroesophageal reflux disease 07/18/2013 Constipation 04/12/2013 Allergic rhinitis 01/30/2012 Diabetes mellitus type 2, uncomplicated 01/30/20 12 Overview (02/22/2023): Education provided re: therapeutic lifestyle changes. Encouraged patient to exercise/walk as much as possible, avoid soda/sugary beverages, drink water, eat high fiber/whole grains, fresh or frozen fruits and veg, try to avoid greasy and/or sugary foods. Glucose: 185 11/23/22 A1c: 6.8 on 11/23/22; increased 6.6 on 11/15/21 Continue Metformin 1000mg BID trulicity 1.5mg weekly injections Lipid panel: WNL 11/23/22 Microalbuminuria: WNL 11/23/22 Foot exam: Performed 02/22/23 pulses 2/ Eye exam: up to date 2021, has new eyeglasses Dental: 09/19/22 PCV 20: 11/23/22 TDap/Td: 02/11/22 ANGIE/ARB: Losartan-HCTZ 100mg/25mg, 1 tablet daily; unknown if pt is still taking. Will refer pt to [facility] for med rec Statin: Atorvastatin 40mg, 1 tablet daily unknown if pt is still taking. Will refer pt to [facility] for med rec Assessment & Plan (02/22/2023 10:14 AM EDT): unknown if pt is still taking ARB and Statin. Will refer pt to [facility] for med rec F/u 3 months or sooner PRN with new PCP Asthma 01/05/2012 Depressive disorder 01/05/2012 Overview (02/22/2023): Tx with Celexa 20 mg daily Biggest factor is concern for her son Tearful during visit today Assessment & Plan (02/22/2023 10:23 AM EDT): Continue medication Declines referral to BH therapy F/u PRN Essential hypertension 01/05/2012 Overview (02/22/2023): Rx amlodipine 5mg daily Losartan-HCTZ 100mg/25mg, 1 tablet daily Metoprolol XL 25 mg daily All are in [facility] Assessment & Plan (02/22/2023 10:15 AM EDT): BP elevated 134/83 Continue Losartan-HCTZ 100mg/25mg, 1 tablet daily Will refer to [facility] for Med Rec Encouraged pt to follow low salt diet F/u 3 months or sooner PRN with new PCP Pure hypercholesterolemia 01/05/2012 Resolved Problems Problem Noted Date Diagnosed Date Resolved Date Osteoporosis 01/05/2012 11/23/2022 Encounters Date Type Department Care Team Description 09/03/2024 Refill [facility] [address] [place] [address] Alicia Astudillo FNP Type 2 diabetes mellitus with diabetic polyneuropathy, without long-term current use of insulin ([facility]) 08/20/2024 Refill [facility] [address] [place] [address] Alicia Astudillo, JOSÉ MANUEL Seasonal allergic rhinitis, unspecified trigger from Last 3 Months Immunizations Name Administration Dates Next Due Hep B, adult 09/01/2023,03/27/2023,02/22/2023 Influenza High-dose Quadriva lent Preservative Free 05/10/2023,05/16/2022,05/19/2021,05/18 Influenza injectable quadriv alent IIV4 with preservative 05/24/2019,05/25/2016,07/30/2015 Influenza injectable quadriv alent preservative free 06/02/2017 Influenza, High Dose Seasona l, Preservative Free 05/07/2024,05/09/2018 Influenza, IIV3, injectable 06/24/2014,1 ,04/21/2009,07/29 Influenza, Split (incl. davonte fied surface antigen) 05/08/2013,06/04/2012 Pneumococcal Conjugate PCV 13 05/25/2016 Pneumococcal Conjugate PCV 20 11/23/2022 Pneumococcal Polysaccharide PPSV23 06/02/2017, RSV Bivalent 09/18/2023 TD (adult), 2 Lf tetanus tox oid, preservative free, adsorbed 02/11/2022,06/12/2003 Tdap 08/21/2009 Zoster, Recombinant 03/01/2022,12/22/2021 Zoster, live 10/13/2014 Family History Medical History Relation Name Comments Heart disease Father Emphysema Mother Relation Name Status Comments Father Mother Social History Tobacco Use Types Packs/Day Years Used Date Smoking Tobacco: Never Passive Smoke Exposure: Never Smokeless Tobacco: Never Tobacco Cessation:Counseling Given: Not Answered Alcohol Use Standard Drinks/Week Comments Never 0 (1 standard drink = 0.6 oz pur e alcohol) Depression Answer Date Recorded Patient Health Questionnaire-9 Score 0 02/16/2024 Patient Health Questionnaire-9 Score 0 02/16/2024 Last PHQ-9: Questionnaire Data Not on file 0 02/16/2024 Housing Stability Answer Date Recorded What is your housing situation today? I have elzbieta villegas 05/29/[address] you li ve. Do you have problems with any of the following? None of the above 05/29/2023 Food Insecurity Answer Date Recorded Within the past 12 months, y ou worried that your food would run out before you got money to buy more: Never True 02/16/2024 Within the past 12 months,th e food you bought just didn't last and you didn't have enough money to get more: Never True 12/2023 Transportation Answer Date Recorded In the past 12 months, has l ack of transportation kept you from medical appts, meetings, work or from getting things needed for daily living? No 05/29/2023 Utilities Answer Date Recorded In the past 12 months, has t he electric, gas, oil or water company threatened to shut off services in your home? No 02/16/2024 Depression Answer Date Recorded Patient Health Questionnaire-2 Score 0 02/16/2024 Comments Unknown Sex and Gender Information Value Date Recorded Sex Assigned at Female 06/13/2022 10:16 AM EDT Legal Sex Female 10:16 AM EDT Gender Identity Choose not to disclose 10:16 AM EDT Sexual Orientation Choose not to disclose 2021 10:16 AM EDT Last Filed Vital Signs Vital Sign Reading Time Taken Comments Blood Pressure 128/65 05/06/2024 11:14 AM EDT Pulse 73 05/06/2024 11:14 AM EDT Temperature 36.7 ??C (98 ??F) 05/06/2024 11:14 AM EDT Respiratory Rate 18 05/06/2024 11:14 AM EDT Oxygen Saturation 96% 05/06/2024 11:14 AM EDT Inhaled Oxygen Concentration - - Weight 65.8 kg (145 lb) 05/06/2024 11:14 AM EDT Height 154.9 cm (5' 1 ) 05/06/2024 11:14 AM EDT Body Mass Index 27.4 05/06/2024 11:14 AM EDT Plan of Treatment Health Maintenance Due Date Last Done Comments CT Colonography 1950 Colonoscopy 1950 Colorectal Cancer Screening 1950 FIT DNA/Cologuard 1950 FIT 1950 FOBT 1950 Sigmoidoscopy 1950 Eye Exam 1960 Alcohol/Substance Use Screening 1962 Mammogram 10/20/2023 09/21/2023, 02/03/2024, 10/17/2022, Additional history exists Diabetes: Foot Exam 02/23/2024 02/22/2023, 02/22/2023, 02/22/2023 SDOH Screening 02/23/2024 02/22/2023 COVID-19 Vaccine ( season) 2024 05/16/2022, 03/07/2022, 07/15/2021, Additional history exists Dental X-Ray: Bitewings 05/11/2024 05/10/2023, 01/25 Diabetes: Hemoglobin A1C 05/18/2024 024, 08/04/2023, 11/23/2022, Additional history exists Dental Oral Exam 08/10/2024 02/08/2024, , 01/25/2022 Dental Prophylaxis 08/10/2024 02/08/2024, 0 05/10/2023, 09/19/2022 Depression Screening 02/15/2025 02/16/2024, 02/16/20 24 Diabetes: Urine Protein Screening 02/15/2025 02/16/2024, 11/23/2022, 02/15/2022, Additional history exists Lipid Panel 02/15/2025 02/16/2024, 11/12, 11/15/2021, Additional history exists Tobacco Screening 05/06/2025 05/06/2024 Dental X-Ray: Full Mouth 05/11/2026 05/10/2023, 08/14 DTaP/Tdap/Td Vaccines (3 - Td or Tdap) 02/12/2032 02/11/2022, 08/21/2009, 06/12/2003 Zoster Vaccines Completed 03/01/2022, 12/12, 10/13/2014 Hepatitis C Screening Completed 11/23/2022 Pneumococcal Vaccine: 50+ Years Completed 11/23/2022, 06/02/2017, 05/25/2016, Additional history exists Hepatitis B Vaccines Completed 09/01/2023, 03/27/2023, 02/22/2023 RSV Patients and Patients Aged 60 years or older Completed 09/18/2023 Influenza Vaccine Completed 05/07/2024, , 05/16/2022, Additional history exists HIB Vaccines Aged Out No longer eligi ble based on patient's age to complete this topic HPV Vaccines Aged Out No longer eligi ble based on patient's age to complete this topic Hepatitis A Vaccines Aged Out No long er eligible based on patient's age to complete this topic IPV Vaccines Aged Out No longer eligi ble based on patient's age to complete this topic Meningococcal Vaccine Aged Out No martell stella eligible based on patient's age to complete this topic RSV under 20 months Aged Out No longe r eligible based on patient's age to complete this topic Rotavirus Vaccines Aged Out No longer eligible based on patient's age to complete this topic Goals Goal Patient Goal Type Associated Problems Recent Progress Patient-Stated? Author Blood Pressure < 140/90 Blood Pressure 128/65(2023 11:14 AM EDT) No Cait Isaac Hemoglobin A1c < 7 Result Component 6.7( 10:08 AM EDT) No Cait Isaac Procedures Procedure Name Priority Date/Time Associated Diagnosis Comments ALBUMIN, RANDOM URINE W/CREATININE Routine 02/16/2024 10:10 AM EDT Type 2 diabetes mellitus without complication, without long-term current use of insulin ([facility]) LIPID PANEL, STANDARD Routine 02/16/2024 10:10 AM EDT Type 2 diabetes mellitus without complication, without long-term current use of insulin ([facility]) POCT GLYCATED HEMOGLOBIN, TOTAL Routine 02/16/2024 10:08 AM EDT Type 2 diabetes mellitus without complication, without long-term current use of insulin ([facility]) Full PROPHYLAXIS - ADULT Routine 02/08/2024 2:00 PM EDT Dental calculus Periodontal disease Generalized gingival recession, severe PERIODIC ORAL EVALUATION - ESTABLISHED PATIENT Routine 02/08/2024 2:00 PM EDT BI MAMMOGRAM SCREENING TOMOSYNTHESIS BILATERAL Routine 09/21/2023 10:00 AM EST INTRAORAL - COMPLETE SERIES OF RADIOGRAPHIC IMAGES Routine 05/10/2023 10:00 AM EDT Dental calculus Periodontal disease Missing teeth, acquired Generalized gingival recession, severe Tipped teeth Dental caries HEPATITIS C AB W/REFL TO HCV RNA, QN, PCR Routine 11/23/2022 9:58 AM EDT Health care maintenance from Last 3 Months or Most Recently Relevant to Health Maintenance Results * Albumin, Random Urine W/Creatinine (02/16/2024 10:10 AM EDT) Creatinine, Urine 132.99 mg/dL [facility] Microalbumin Urine 15.0 mg/L [facility] Microalbum Creatinine Ratio Ur 11.2 <30 ug/mg cr [facility] Comment:Albumin/Creatinine R atio Reference Ranges: Normal: < 30 ug/mg creatinine Microalbuminuria: 30 - 300 ug/mg creatinineClinical Albuminuria: > 300 ug/mg creatinine Urine (Urine, Random) 02/16/2024 10:10 AM EDT 02/16/2024 11:21 AM EDT Alicia Astudillo [facility] [facility] LAB URINE ORDERABLES Final Resu lt [facility] [address] [place] [phone] * Lipid Panel, Standard (02/16/2024 10:10 AM EDT) Triglycerides 101 <150 mg/dL [facility] Comment:Desirable Triglyceri de: less than 150 mg/dLBorderline High Triglyceride 150-199 mg/dLHigh Triglyceride: 200-499 mg/dLVery High Triglyceride: greater than or equal to 5OO mg/dL Cholesterol 146 <200 mg/dL [facility] Comment:Desirable Cholestero l: less than 200 mg/dLBorderline High Cholesterol: 200-239 mg/dLHigh Cholesterol: greater than 239 mg/dL LDL Cholesterol Calculated 65 <100 mg/dL [facility] Comment:Desirable LDL: less than 100 mg/dLNear Optimal/Above Optimal LDL: 110- 129 mg/dLBorderline High LDL: 130-159 mg/dLHigh LDL: 160-189 mg/dLVery High LDL: greater than or equal to 190 mg/dL HDL Cholesterol 61 >40 mg/dL [facility] Comment:Desirable HDL: great er than 40 mg/dL Note: This HDL assay may give artificially low results in patients with liver disease. Blood Venous blood specimen / Unknown 02/16/2024 10:10 AM EDT 02/16/2024 11:07 AM EDT Alicia Wilda [facility] LAB BLOOD ORDERABLES Final Resu lt [facility] [address] [place] [phone] * (ABNORMAL) POCT HGB A1C (02/16/2024 10:08 AM EDT) Hemoglobin A1C 6.7(A) 4.0 - 6.0 % QC Media Lot # [id number] Lot# Expiration Date ,026 Blood 02/16/2024 10:0 8 AM EDT Alicia FloQast [employer] [facility] POINT OF CARE TEST ENTER/EDIT O RDERABLES Final Result * BI Mammogram Screening Tomosynthesis Bilateral (09/21/2023 10:00 AM EST) Anatomical Region Laterality Modality Breast Bilateral Mammography 09/21/2023 10:0 0 AM EST Narrative 10/07/2023 1:30 PM EST ? [facility] ? [address] ?[place] [address] ? Mammography Report ? Signed ? Patient: Martinez,Alexandria ?MR#: [id number] ?? [id number] ? : 1950 ?Acct:[id number] ? Age/Sex: 73 / F ?ADM Date: /08/24 ? Loc: HO.MAMMO ? Attending Dr: Alicia Astudillo LATHING SUPERVISOR ? Ordering Physician: Alicia Astudillo LATHING SUPERVISOR ?Results: 2Benign ?? Findings ? Date of Service: 09/21/23 ?Follow Up: 1 Year From Orig ?? inal Mammogram ? Procedure(s): MM tomosynthesis screening BI ?? Accession Number(s): [id number] ? cc: Alicia Astudillo LATHING SUPERVISOR ? EXAMINATION: ?? MM SCREENING DIGITAL BREAST TOMOSYNTHESIS, BILATERAL ? CLINICAL INFORMATION: ? Screening. Asymptomatic. ? COMPARISON: ?? Mammography: This study is compared with prior exams dating back to ?? 2019. ? TECHNIQUE: ?? Digital breast tomosynthesis is performed in both the craniocaudal and ?? mediolateral oblique views along with computer-aided detection (CAD). ?? Synthesized 2D images are generated from the tomosynthesis. ? FINDINGS: ?? The breasts are heterogeneously dense, which may obscure small masses ?? (ACR BI-RADS breast composition Category c). ? There are no significant masses, abnormal calcifications, or other ?? abnormalities. ? There is a tissue marker present in each breast from prior benign ?? percutaneous biopsies. ? There are a few, bilateral, benign calcifications in each breast. ? MM/MM tomosynthesis screening BI ?? IMPRESSION: ?? No mammographic evidence of malignancy. ? ASSESSMENT: ? BI-RADS BI-RADS 2 - Benign Findings ? RECOMMENDATION: ?? Routine annual mammography screening. ? 1 year F/U ? This examination should not preclude the clinical evaluation of a ?? suspicious palpable abnormality. ? This patient's information was entered into a reminder system with a ?? target due date for their next mammogram. ? Dictated By: ?Madai Jones MD ? Signed By: ?<Electronically signed by Madai Jones MD in OV> ? 10/07/23 1326 ? DD/ 1000 ? TD/TT: ? Roll Reclaimer: ? Procedure Note Donotuseinterpreter, Image - 10/07/2023 [facility] [address] [place], [place] [address] Mammography Report Signed Patient: Cristian Martinez#: [id number] : 1950Acct:[id number] Age/Sex: 73 / FADM Date: 09/21/23 Loc: HO.MAMMO Attending Dr: Alicia Astudillo LATHING SUPERVISOR Ordering Physician: Alicia Astudillo NPResults: 2Benign Findings Date of Service: 09/21/23Follow Up: 1 Year From Orig inal Mammogram Procedure(s): MM tomosynthesis screening BI Accession Number(s): [id number] cc: Alicia Asutdillo NP EXAMINATION: MM SCREENING DIGITAL BREAST TOMOSYNTHESIS, BILATERAL CLINICAL INFORMATION: Screening. Asymptomatic. COMPARISON: Mammography: This study is compared with prior exams dating back to 2019. TECHNIQUE: Digital breast tomosynthesis is performed in both the craniocaudal and mediolateral oblique views along with computer-aided detection (CAD). Synthesized 2D images are generated from the tomosynthesis. FINDINGS: The breasts are heterogeneously dense, which may obscure small masses (ACR BI-RADS breast composition Category c). There are no significant masses, abnormal calcifications, or other abnormalities. There is a tissue marker present in each breast from prior benign percutaneous biopsies. There are a few, bilateral, benign calcifications in each breast. MM/MM tomosynthesis screening BI IMPRESSION: No mammographic evidence of malignancy. ASSESSMENT: BI-RADS BI-RADS 2 - Benign Findings RECOMMENDATION: Routine annual mammography screening. 1 year F/U This examination should not preclude the clinical evaluation of a suspicious palpable abnormality. This patient's information was entered into a reminder system with a target due date for their next mammogram. Dictated By: Madai Jones MD Signed By: <Electronically signed by Madai Jones MD in OV> 10/07/23 1326 DD/ 1000 TD/TT: Roll Reclaimer: Result [facility] Alicia Astudillo [employer] IMG BI PROCEDURES Final Result * Hepatitis C Antibody with Reflex to HCV, RNA, Quantitative, Real-Time PCR (11/23/2022 9:58 AM EDT) Hepatitis C Antibody NON-REACT CRISS NON-REACT CRISS [employer] Index 0.09 <1.00 [employer] Comment: HCV antibody was non-reactive. There is no laboratory evidence of HCV infection. In most cases, no further action is required. However, if recent HCV exposure is suspected, a test for HCV RNA (test code 51213) is suggested. For additional information please refer to http://education.[employer] Video/faq/RJT86p4 (This link is being provided for informational/ educational purposes only.) Blood Venous blood specimen / Unknown 11/23/2022 9:58 AM EDT 11/23/2022 9:58 AM EDT Narrative [facility] - 11/24/2022 6:36 PM EDT FASTING:NO FASTING: NO Result [facility] Francy Mccoy [facility] BLOOD ORDERABLES Final Result [facility] [address], [place] [address] [employer] [place] [employer] [address] [place] [phone] from Last 3 Months or Most Recently Relevant to Health Maintenance Insurance [facility] - [facility]CO DENTAL - [facility] Care Teams Remote Operations Producer Relationship Specialty Start Date End Date Kerrie Wagner MD [address] [place] [phone] PCP - General Internal Medicine 04/17/24
--- OUTSIDE RECORDS SUMMARY | 2024-09-26 10:10 | XMS_ITS | Encounter Summary ---
Author Organization [employer] Address [address] [place] [address] 7t [place] [address] Care Team Providers Care Resawyer Name Role Phone Francy Mccoy Primary Care Provider [phone] Alicia Astudillo Primary Care Provider [phone] Kerrie Wagner MD Primary Care Provider + Encounter Details Date Type Department Care Team (Late st Contact Info) Description 08/05/2022 Orders Only [facility] MED & PEDS [address] [place] [address] Kylie Araujo LPN Social History Tobacco Use Types Packs/Day Years Used Date Smoking Tobacco: Never Assessed Comments Unknown Sex and Gender Information Value Date Recorded Sex Assigned at Female 06/13/2022 10:16 AM EDT Legal Sex Female 10:16 AM EDT Gender Identity Choose not to disclose 10:16 AM EDT Sexual Orientation Choose not to disclose 2021 10:16 AM EDT documented as of this encounter Plan of Treatment Not on file documented as of this encounter Visit Diagnoses Not on filedocumented in this encounter Care Teams Resawyer Relationship Specialty Start Date End Date Francy Mccoy FNP PCP - General Family Medicine 08/10/21 02/21/23 Alicia Astudillo FNP [address] [place] [address] PCP - General Family Medicine 02/22/23 04/16/24 Kerrie Wagner MD [address] [place] [address] PCP - General Internal Medicine 04/17/24 documented as of this encounter
--- OUTSIDE RECORDS SUMMARY | 2024-09-26 10:10 | XMS_ITS | Encounter Summary ---
Author Organization [employer] Address [address] [place] [address] 7[address] [place] [address] Care Team Providers Care Senior Mobile Developer Name Role Phone Francy Mccoy Primary Care Provider [phone] Alicia Astudillo Primary Care Provider [phone] Kerrie Wagner MD Primary Care Provider + Encounter Details Date Type Department Care Team (Late st Contact Info) Description 08/23/2022 Orders Only [facility] MEDICINE [address] [place] [address] Jaylin Kee LPN Social History Tobacco Use Types Packs/Day [...] on filedocumented in this encounter Care Teams Senior Mobile Developer Relationship Specialty Start Date End Date Francy Mccoy FNP PCP - General Family Medicine 08/10/21 02/21/23 Alicia Astudillo FNP [address] [place] [address] PCP - General Family Medicine 02/22/23 04/16/24 Kerrie Wagner MD [address] [place] [address] PCP - General Internal Medicine 04/17/24 documented as of this encounter
--- OUTSIDE RECORDS SUMMARY | 2024-09-26 10:10 | XMS_ITS | Encounter Summary ---
Author Organization [email or web address] Address [address] [place] [address] 7t [place] [address] Care Team Providers Care Food Service Employee Name Role Phone Francy MccoyP Primary Care Provider [phone] Alicia Astudillo Primary Care Provider [phone] Kerrie Wagner MD Primary Care Provider + Encounter Details Date Type Department Care Team (Latest Contact Info) Description 10/28/2020 Abstract [facility] CONVERSIONS Dental, Provider, DDS Social History Tobacco Use Types Packs/Day Years [...] on filedocumented in this encounter Care Teams Food Service Employee Relationship Specialty Start Date End Date Francy Mccoy FNP PCP - General Family Medicine 08/10/21 02/21/23 Alicia Astudillo FNP [address] [place] [address] PCP - General Family Medicine 02/22/23 04/16/24 Kerrie Wagner MD [address] [place] [address] PCP - General Internal Medicine 04/17/24 documented as of this encounter
--- OUTSIDE RECORDS SUMMARY | 2024-09-26 10:10 | XMS_ITS | Encounter Summary ---
Author Organization [employer] Address [address] [place] [address] 7[address] [place] [address] Care Team Providers Care Medical Collections Representative Name Role Phone Francy MccoyP Primary Care Provider [phone] Alicia Astudillo Primary Care Provider [phone] Kerrie Wagner MD Primary Care Provider + Encounter Details Date Type Department Care Team (Latest Contact Info) Description 08/30/2019 Abstract [facility] CONVERSIONS Dental, Provider, DDS Social History [...] on filedocumented in this encounter Care Teams Medical Collections Representative Relationship Specialty Start Date End Date Francy Mccoy FNP PCP - General Family Medicine 08/10/21 02/21/23 Alicia Astudillo FNP [address] [place], [place] [id number] PCP - General Family Medicine 02/22/23 04/16/24 Kerrie Wagner MD [address] [place] [address] PCP - General Internal Medicine 04/17/24 documented as of this encounter
--- OUTSIDE RECORDS SUMMARY | 2024-09-26 10:10 | XMS_ITS | Encounter Summary ---
Author Organization [employer] Address [address] [facility] 7t [place] [address] Care Team Providers Care Director Environmental Name Role Phone Alicia Astudillo Primary Care Provider [phone] Kerrie Wagner MD Primary Care Provider + Reason for Visit * Reason Comments Med Change Request Encounter Details Date Type Department Care Team (Late st Contact Info) Description 10/11/2023 Refill [facility] MED & PEDS [address] [place], [place] [phone] Alicia Astudillo FNP [address] [place] [address] Social History Tobacco Use Types Packs/Day Years Used Date Smoking Tobacco: Never Passive Smoke Exposure: Never Smokeless Tobacco: Never Alcohol Use Standard Drinks/Week Comments Never 0 (1 standard drink = 0.6 oz pur e alcohol) Depression Answer Date Recorded Patient Health Questionnaire-9 Score 2 02/22/2023 Housing Stability Answer Date Recorded What is your housing situation today? I have elzbieta villegas 05/29/[address] you li ve. Do you have problems with any of the following? None of the above 05/29/2023 Food Insecurity Answer Date Recorded Within the past 12 months, y ou worried that your food would run out before you got money to buy more: Sometimes True 2022 Within the past 12 months,th e food you bought just didn't last and you didn't have enough money to get more: Sometimes True 05/29/2023 Transportation Answer Date Recorded In the past 12 months, has l ack of transportation kept you from medical appts, meetings, work or from getting things needed for daily living? No 05/29/2023 Utilities Answer Date Recorded In the past 12 months, has t he electric, gas, oil or water company threatened to shut off services in your home? Yes 05/24/2023 Depression Answer Date Recorded Patient Health Questionnaire-2 Score 1 02/22/2023 Comments Unknown Sex and Gender Information Value Date Recorded Sex Assigned at Female 06/13/2022 10:16 AM EDT Legal Sex Female 10:16 AM EDT Gender Identity Choose not to disclose 10:16 AM EDT Sexual Orientation Choose not to disclose 2021 10:16 AM EDT documented as of this encounter Plan of Treatment Not on file documented as of this encounter Goals Goal Patient Goal Type Associated Problems Recent Progress Patient-Stated? Author Blood Pressure < 140/90 Blood Pressure 128/65(2023 11:14 AM EDT) No Cait Isaac Hemoglobin A1c < 7 Result Component 6.7( 10:08 AM EDT) No Cait Isaac documented as of this encounter Visit Diagnoses Not on filedocumented in this encounter Additional Health Concerns Assessment Noted Time PHQ-9 Depression Total Score: 2 02/23/20 23 9:23 AM EDT documented as of this encounter Care Teams Director Environmental Relationship Specialty Start Date End Date Alicia Astudillo FNP [address] [place] [address] PCP - General Family Medicine 02/22/23 04/16/24 Kerrie Wagner MD [address] [place] [address] PCP - General Internal Medicine 04/17/24 documented as of this encounter
--- OUTSIDE RECORDS SUMMARY | 2024-09-26 10:10 | XMS_ITS | Encounter Summary ---
Author Organization [employer] Address [address] [facility] 7t [place] [address] Care Team Providers Care Sulfide Head Operator Name Role Phone Alicia Astudillo Primary Care Provider [phone] Kerrie Wagner MD Primary Care Provider + Encounter Details Date Type Department Care Team (Late st Contact Info) Description 03/13/2023 Orders Only [facility] MEDICINE [address] [place] [address] Jaylin Kee LPN Social History Tobacco Use Types Packs/Day Years Used Date Smoking Tobacco: Never Passive Smoke Exposure: Never Smokeless Tobacco: Never Depression Answer Date Recorded Patient Health Questionnaire-9 Score 2 02/22/2023 Depression Answer Date Recorded Patient Health Questionnaire-2 Score 1 02/22/2023 Comments Unknown Sex and Gender Information Value Date Recorded Sex Assigned at Female 06/13/2022 10:16 AM EDT Legal Sex Female 10:16 AM EDT Gender Identity Choose not to disclose 10:16 AM EDT Sexual Orientation Choose not to disclose 2021 10:16 AM EDT COVID-19 Exposure Response Date Recorded In the last 10 days, have yo u been in contact with someone who was confirmed or suspected to have Coronavirus/COVID-19? No / Unsure 02/22/2023 8:31 AM EDT documented as of this encounter Plan of Treatment Not on file documented as of this encounter Visit Diagnoses Not on filedocumented in this encounter Additional Health Concerns Assessment Noted Time PHQ-9 Depression Total Score: 2 02/23/20 23 9:23 AM EDT documented as of this encounter Care Teams Sulfide Head Operator Relationship Specialty Start Date End Date Alicia Astudillo FNP [address] [place] [address] PCP - General Family Medicine 02/22/23 04/16/24 Kerrie Wagner MD [address] [place] [address] PCP - General Internal Medicine 04/17/24 documented as of this encounter
--- OUTSIDE RECORDS SUMMARY | 2024-09-26 10:10 | XMS_ITS | Encounter Summary ---
Author Organization [employer] Address [address] [place] [address] [address] [place] [address] Care Team Providers Care Screen Printing Machine Operator Helper Name Role Phone Francy MccoyP Primary Care Provider [phone] Alicia Astudillo Primary Care Provider [phone] Kerrie Wagner MD Primary Care Provider + Encounter Details Date Type Department Care Team (Latest Contact Info) Description 01/25/[address] [facility] CONVERSIONS Dental, Provider, DDS Social History [...] on filedocumented in this encounter Care Teams Screen Printing Machine Operator Helper Relationship Specialty Start Date End Date Francy Mccoy FNP PCP - General Family Medicine 08/10/21 02/21/23 Alicia Astudillo FNP [address] [place] [address] PCP - General Family Medicine 02/22/23 04/16/24 Kerrie Wagner MD [address] [place] [address] PCP - General Internal Medicine 04/17/24 documented as of this encounter
--- OUTSIDE RECORDS SUMMARY | 2024-09-26 10:10 | XMS_ITS | Encounter Summary ---
Author Organization [employer] Address [address] [facility] 7t [place] [address] Care Team Providers Care Manager Human Capital Name Role Phone Alicia Astudillo Primary Care Provider [phone] Kerrie Wagner MD Primary Care Provider + Encounter Details Date Type Department Care Team (Late st Contact Info) Description 10/11/2023 Orders Only [facility] CHC MED & PEDS [address] [place] [address] Alicia Astudillo FNP [address] [place] [address] Social History Tobacco Use Types Packs/Day Years [...] documented as of this encounter Care Teams Manager Human Capital Relationship Specialty Start Date End Date Alicia Astudillo FNP [address] [place] [address] PCP - General Family Medicine 02/22/23 04/16/24 Kerrie Wagner MD [address] [place] [address] PCP - General Internal Medicine 04/17/24 documented as of this encounter
--- OUTSIDE RECORDS SUMMARY | 2024-09-26 10:10 | XMS_ITS | Encounter Summary ---
Author Organization [employer] Address [address] [facility] 7t [place] [address] Care Team Providers Care Biofuels Technology Manager Name Role Phone Kerrie Wagner MD Primary Care Provider + Reason for Visit * Reason Comments Med Refill Encounter Details Date Type Department Care Team ([facility] st Contact Info) Description 09/03/2024 Refill [facility] CHC MED & PEDS [address] [place], [place] [phone] Alicia Astudillo FNP [address] [place] [address] Type 2 diabetes mellitus with diabetic polyneuropathy, without long-term current use of insulin ([facility]) Social History Tobacco Use Types Packs/Day Years [...] documented as of this encounter Visit Diagnoses Diagnosis Type 2 diabetes mellitus with diabetic polyneuropathy, without long-term current use of insulin ([facility]) documented in this encounter Additional Health Concerns Assessment Noted Time PHQ-9 Depression Total Score: 0 02/16/20 9:52 AM EDT documented as of this encounter Care Teams Biofuels Technology Manager Relationship Specialty Start Date End Date Kerrie Wagner MD [address] [place] [address] PCP - General Internal Medicine 04/17/24 documented as of this encounter
--- OUTSIDE RECORDS SUMMARY | 2024-09-26 10:10 | XMS_ITS | Encounter Summary ---
Author Organization [employer] Address [address] [facility] 7t [place] [address] Care Team Providers Care Container Coordinator Name Role Phone Alicia Astudillo Primary Care Provider [phone] Kerrie Wagner MD Primary Care Provider + Reason for Visit * Reason Onset Date Comments Medication Question 10/03/2023 Encounter Details Date Type Department Care Team (Late st Contact Info) Description 10/03/[address] [facility] MEDICINE [address] [place] [address] Alicia Astudillo FNP [address] [place] [address] Medication Question Social History Tobacco Use Types Packs/Day Years [...] AM EDT documented as of this encounter Miscellaneous Notes * Telephone Encounter - Bang Aguayo - 10/03/2023 12:47 PM EST Tc from pt Son requesting if possible if medication dulaglutide (Trulicity) 1.5 MG/0.5ML solution pen-injector could be replaced with another medication due to medication being back order. Please contact pt son @ [phone] Khmer Speaker documented in this encounter Plan of Treatment Not on [...] Time PHQ-9 Depression Total Score: 2 02/23/20 9:23 AM EDT documented as of this encounter Care Teams Container Coordinator Relationship Specialty Start Date End Date Alicia Astudillo FNP [address] [place] [address] PCP - General Family Medicine 02/22/23 04/16/24 Kerrie Wagner MD [address] [place] [address] PCP - General Internal Medicine 04/17/24 documented as of this encounter
== END 2024-09-26 09:38 | disposition home or self-care (01) ==
LOC: HO.MAMMO 09:37
PROVIDERS: PCP Nurse Practitioner Family; Visit Provider Nurse Practitioner Family
DX: Z12.31 Encounter for screening mammogram for malignant neoplasm of breast (principal)
CPT/HCPCS: 77063; 77067

== ENCOUNTER → 2024-09-26 09:45 | Outpatient (BNV) | payer OTHER, SELFPAY | PROVIDERS: PCP Nurse Practitioner Family; Visit Provider Internal Medicine | DX: Z12.31 Encounter for screening mammogram for malignant neoplasm of breast (principal) | CPT/HCPCS: 77063; 77067 ==

== ENCOUNTER 2025-03-26 09:25 | Outpatient (REF) | payer OTHER, SELFPAY ==
--- OUTSIDE RECORDS SUMMARY | 2025-03-26 09:52 | XMS_ITS | Clinical Summary ---
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 Role Phone Kerrie Wagner MD Primary Care Provider + Allergies No known active allergies Medications baclofen (Lioresal) 10 MG tablet TAKE 1/2 TABLET BY MOUTH THREE TIMES DAILY IN THE MORNING, AT NOON, AND AT BEDTIME NEEDED FOR MUSCLE SPASMS 30 tablet 1 024 Active Aspirin Low Dose 81 MG EC tablet TAKE 1 TABLET BY MOUTH EVERY MORNING 90 tablet 3 024 Active ezetimibe (Zetia) 10 MG tablet TAKE 1 TABLET BY MOUTH EVERY EVENING 90 tablet 3 024 Active FREESTYLE LITE test stripIndication s:Type 2 diabetes mellitus with diabetic polyneuropathy, without long-term current use of insulin ([facility]) TEST BLOOD SUGAR TWICE DAILY 50 strip 11 025 Active Calcium Carb-Cholecalci ferol 600-10 MG-MCG tabletIndicatio ns:Osteopenia of neck of left femur TAKE 1 TABLET BY MOUTH EVERY MORNING 90 tablet 3 025 Active amLODIPine (Norvasc) 5 MG tabletIndicatio ns:Primary hypertension TAKE 1 TABLET BY MOUTH EVERY EVENING 90 tablet 3 025 Active TRUEplus Lancets 33G miscIndications :Type 2 diabetes mellitus with other specified complication, without long-term current use of insulin (CMS/HCC) TEST BLOOD SUGAR TWICE DAILY 100 each 11 025 Active Alcohol Swabs (Alcohol Prep) 70 % padsIndications :Type 2 diabetes mellitus with other specified complication, without long-term current use of insulin ([facility]) USE TWICE DAILY 100 each 11 Active citalopram (CeleXA) 20 MG tabletIndicatio ns:Moderate episode of recurrent major depressive disorder (CMS/HCC) TAKE 1 TABLET BY MOUTH EVERY MORNING 90 tablet Active atorvastatin (Lipitor) 40 MG tablet TAKE 1 TABLET BY MOUTH EVERY EVENING 90 tablet 1 Active cetirizine (ZyrTEC) 10 MG tabletIndicatio ns:Seasonal allergic rhinitis, unspecified trigger TAKE 1 TABLET BY MOUTH EVERY MORNING NEEDED 90 tablet 1 Active metFORMIN (Glucophage) 1000 MG tablet TAKE 1 TABLET BY MOUTH TWICE DAILY IN THE MORNING AND IN THE EVENING WITH FOOD 180 tablet Active metoprolol succinate XL (Toprol-XL) 25 MG 24 hr tablet TAKE 1 TABLET BY MOUTH EVERY MORNING 90 tablet Active losartan-hydroC HLOROthiazide (Hyzaar) 100-25 MG tablet TAKE 1 TABLET BY MOUTH EVERY MORNING 90 tablet 1 Active acetaminophen (Tylenol 8 Hour) 650 MG ER tabletIndicatio ns:Retained tooth root Take 1 tablet (650 mg) by mouth every 8 (eight) hours if needed for mild pain. Do not crush, chew, or split. 30 tablet Active Ozempic, 0.25 or 0.5 MG/DOSE, 2 MG/3ML solution pen-injectorInd ications:Type 2 diabetes mellitus with other specified complication (CMS/[facility]) INJECT 0.5 MG SUBCUTANEOUSLY EVERY 7 DAYS IN THE ABDOMEN, THIGHS, OR UPPER ARM, ROTATE INJECTION SITES. 3 mL Active Diclofenac Sodium 1 % gel Apply 2 g topically if needed in the morning, at noon, in the evening, and at bedtime (pain). 150 g 1 Active fluticasone (Flonase) 50 MCG/ACT nasal spray Administer 1 spray into each nostril Once per day. 16 g 2 025 2024 Active ammonium lactate (Amlactin) 12 % cream Apply topically if needed for dry skin. 385 g 2025 Active Diclofenac Sodium 1 % gel Apply 2 g topically if needed in the morning, at noon, in the evening, and at bedtime (pain). 150 g 1 024 2024 Discontinued(R eorder (will not trigger notification to Pharmacy)) losartan-hydroC HLOROthiazide (Hyzaar) 100-25 MG tablet Take 1 tablet by mouth in the morning. 90 tablet 3 024 2024 Discontinued(R eorder (will not trigger notification to Pharmacy)) acetaminophen (Tylenol 8 Hour) 650 MG ER tablet TAKE 1 TABLET BY MOUTH EVERY 8 HOURS NEEDED FOR MILD PAIN 40 tablet 1 024 2024 Discontinued atorvastatin (Lipitor) 40 MG tablet TAKE 1 TABLET BY MOUTH EVERY EVENING 90 tablet 1 025 2024 Discontinued cetirizine (ZyrTEC) 10 MG tabletIndicatio ns:Seasonal allergic rhinitis, unspecified trigger TAKE 1 TABLET BY MOUTH EVERY MORNING NEEDED 90 tablet 1 025 2024 Discontinued metFORMIN (Glucophage) 1000 MG tablet TAKE 1 TABLET BY MOUTH TWICE DAILY IN THE MORNING AND IN THE EVENING WITH FOOD 180 tablet 1 025 2024 Discontinued metoprolol succinate XL (Toprol-XL) 25 MG 24 hr tablet TAKE 1 TABLET BY MOUTH EVERY MORNING 90 tablet 1 025 2024 Discontinued Semaglutide,0.2 5 or 0.5MG/DOS, (Ozempic, 0.25 or 0.5 MG/DOSE,) 2 MG/3ML solution pen-injectorInd ications:Type 2 diabetes mellitus with other specified complication (CMS/[facility]) INJECT 0.5 MG SUBCUTANEOUSLY EVERY WEEK 3 mL 025 2024 Discontinued amoxicillin (Amoxil) 500 MG capsuleIndicati ons:Retained tooth root Take 1 capsule (500 mg) by mouth every 8 (eight) hours for 7 days. 21 capsule 025 2024 Discontinued(T herapy completed) Active Problems Problem Noted Date Diagnosed Date Postnasal drip 03/24/2025 Assessment & Plan (03/24/2025 4:18 PM EDT): Use Flonase nasal x 1mo and fu w me. Overweight 03/24/2025 Assessment & Plan (03/24/2025 4:30 PM EDT): Discussed re weight reduction options including exercise, life style modifications, diet. Recommended to decrease soda and sugary beverage consumption, increase protein intake with meals (at least 1 portion of protein with each meal) to assist with satiety, increase dietary fiber Recommended at least 150 min/week of moderate intensity exercise. Doing well on Ozempic and metformin, she has lost approx 15lb since last year (started on 09/2023) Fractured tooth 03/13/2025 Retained tooth root 03/13/2025 Advanced periodontitis 02/04/2025 Acute gingival inflammation 02/04/2025 Halitosis 02/04/2025 Missing teeth, acquired 05/10/2023 Tipped teeth 05/10/2023 [...] WNL 11/23/22 Foot exam: Performed 02/22/23 pulses 2/2 Eye exam: up to date 2021, has new eyeglasses Dental: 09/19/22 PCV 20: 11/23/22 TDap/Td: 02/11/22 ANGIE/ARB: Losartan-HCTZ 100mg/25mg, 1 tablet daily; unknown if pt is still taking. Will refer pt to [facility] for med rec Statin: Atorvastatin 40mg, 1 tablet daily unknown if pt is still taking. Will refer pt to [facility] for med rec Assessment & Plan (03/24/2025 4:25 PM EDT): Controlled. A1c is at goal. Continue on Ozempic and metformin Counseled re more frequent low calorie/carb meals. Check fgstk 1x daily Encouraged physical activity as tolerated. FU in 3 months. Eye exam : [facility] 12[facility]24 Foot examination is normal, no diabetic neuropathy FU in 3mo Assessment & Plan (02/22/2023 10:14 AM EDT): [...] AM EDT): Continue medication Declines referral to therapy F/u PRN Essential hypertension 01/05/2012 Overview (02/22/2023): Rx amlodipine 5mg daily Losartan-HCTZ 100mg/25mg, 1 tablet daily Metoprolol XL 25 mg daily All are in [facility] Assessment & Plan (03/24/2025 4:18 PM EDT): Controlled. Compliant w/meds Continue losartan/hctz + amlodipine + metoprolol same dose Counseled re low salt diet/increase moderate physical activity. Check home BP BIW and prn CP/ABRAHAM/CONRAD Non smoking patient. FU 6mo Assessment & Plan (02/22/2023 10:15 AM EDT): BP elevated 134/83 Continue Losartan-HCTZ 100mg/25mg, 1 tablet daily Will refer to [facility] for Med Rec Encouraged pt to follow low salt diet F/u 3 months or sooner PRN with new PCP Pure hypercholesterolemia 01/05/2012 Resolved Problems Problem Noted Date Diagnosed Date Resolved Date Periorbital cellulitis 05/06/202403/24 Assessment & Plan (05/08/2024 6:26 PM EDT): See above, will treat with keflex Blepharoconjunctivitis of both eyes 05/06/2024 03/24/2025 Assessment & Plan (05/08/2024 6:26 PM EDT): While this may be allergic it is rapidly progressing, Will treat for possible cellulitis, Rtc in 7 days sooner should symptoms worsen Thrush of mouth and esophagus 05/06/2024 03/24/2025 Assessment & Plan (05/08/2024 6:27 PM EDT): Suspect thrush may be contributing to sore throat, Rx as written below Sore throat 05/06/2024 03/24/2025 Osteoporosis 01/05/2012 11/23/2022 Encounters Date Type Department Care Team Description 03/24/2025 11:30 AM EDT Office Visit [facility] [address] [place] [address] Kerrie Wagner MD Essential hypertension (Primary Dx); Type 2 diabetes mellitus without complication, without long-term current use of insulin ([facility]); Postnasal drip; Overweight; Dietary counseling; Exercise counseling 03/24/2025 Travel 03/20/2025 Telephone [facility] [address] [place] [address] Kerrie Wagner MD chart prep 03/19/2025 Refill [facility] [address] [place] [address] Kerrie Wagner MD Type 2 diabetes mellitus with other specified complication (CMS/HCC) 03/13/2025 9:00 AM EDT Office Visit [facility] [address] [place] [address] Mihai Roger DDS Tipped teeth (Primary Dx); Fractured tooth; Retained tooth root 03/12/2025 Patient Outreach [facility] [address] [place] [phone] Kerrie Wagner MD Pre-visit Planning ((Unable to reach for PVP screening, LVM) to be completed in office ) 03/04/[address] [address] Alicia Astudillo FNP 03/04/[address] [address] Kerrie Wagner MD Seasonal allergic rhinitis, unspecified trigger 02/04/2025 10:00 AM EDT Office Visit [facility] [address] [place] [address] Yulisa Pleitez Generalized gingival recession, severe (Primary Dx); Missing teeth, acquired; Dental calculus; Dental caries; Tipped teeth; Dental abscess; Halitosis; Acute gingival inflammation; Advanced periodontitis; Gingival bleeding; Fractured tooth; Encounter for dental examination 01/13/2025 Telephone [facility] [address] [place] [address] Yulisa Pleitez 01/03/2025 Refill [facility] [address] [place], [place] [phone] Alicia Astudillo FNP Moderate episode of recurrent major depressive disorder (CMS/HCC) from Last 3 Months Immunizations Immunization Administration Dates Next Due Hep B, adult [...] Date Recorded Patient Health Questionnaire-9 Score 0 03/24/2025 Patient Health Questionnaire-9 Score 0 03/24/2025 Last PHQ-9: Questionnaire Data Not on file 0 03/24/2025 Housing Stability Answer Date Recorded What is your housing situation today? I have elzbieta villegas 03/24/[address] you li ve. Do you have problems with any of the following? None of the above 03/24/2025 Food Insecurity Answer Date Recorded Within the past 12 months, y ou worried that your food would run out before you got money to buy more: Never True 03/24/2025 Within the past 12 months,th e food you bought just didn't last and you didn't have enough money to get more: Never True 06/2025 Transportation Answer Date Recorded In the past 12 months, has l ack of transportation kept you from medical appts, meetings, work or from getting things needed for daily living? No 03/24/2025 Utilities Answer Date Recorded In the past 12 months, has t he electric, gas, oil or water company threatened to shut off services in your home? No 03/24/2025 Depression Answer Date Recorded Patient Health Questionnaire-2 Score 0 03/24/2025 Internet Access Answer Date Recorded Internet Access Q1 Yes 03/24/2025 Internet Access Q2 Not on file 03/24/2025 Comments Unknown Sex and Gender Information Value Date Recorded Sex Assigned at Female 06/13/2022 10:16 AM EDT Legal Sex Female 10:16 AM EDT Gender Identity Choose not to disclose 10:16 AM EDT Sexual Orientation Choose not to disclose 2021 10:16 AM EDT Last Filed Vital Signs Vital Sign Reading Time Taken Comments Blood Pressure 110/62 03/24/2025 11:31 AM EDT Pulse 72 03/24/2025 11:31 AM EDT Temperature 36.6 C (97.8 F) 03/24/2025 11:31 AM EDT Respiratory Rate 16 03/24/2025 11:31 AM EDT Oxygen Saturation 96% 05/06/2024 11:14 AM EDT Inhaled Oxygen Concentration - - Weight 65 kg (143 lb 6.4 oz) 03/24/2025 11:31 AM EDT Height 153 cm (5' 0.25 ) 03/24/2025 11:31 AM EDT Body Mass Index 27.77 03/24/2025 11:31 AM EDT Plan of Treatment Upcoming Encounters Date Type Department Care Team (Late st Contact Info) Description 04/29/2025 10:00 AM EDT Office Visit [facility] [address] [place] [phone] Mihai Roger DDS [address] [place] [address] 06/02/2025 10:30 AM EDT Office Visit [facility] [address] [place] [address] Kerrie Wagner MD [address] [place] [address] Health Maintenance Due Date Last Done Comments CT Colonography 1950 Colonoscopy 1950 Colorectal Cancer Screening 1950 FIT DNA/Cologuard 1950 FIT 1950 FOBT 1950 Sigmoidoscopy 1950 COVID-19 Vaccine ( season) 2024 05/16/2022, 03/07/2022, 07/15/2021, Additional history exists Diabetes: Urine Protein Screening 02/15/2025 02/16/2024, 11/23/2022, 02/15/2022, Additional history exists Lipid Panel 02/15/2025 02/16/2024, 11/12, 11/15/2021, Additional history exists Influenza Vaccine (#1) 2025 , 05/10/2023, 05/16/2022, Additional history exists Dental Oral Exam 08/07/2025 02/04/2025, , 05/10/2023, Additional history exists Dental Prophylaxis 08/07/2025 02/04/2025, 0 02/08/2024, 05/10/2023, Additional history exists Diabetes: Hemoglobin A1C 09/24/2025 025, 02/16/2024, 08/04/2023, Additional history exists Mammogram 09/26/2025 09/26/2024, 02/0 03/2024, 09/21/2023, Additional history exists Dental X-Ray: Bitewings 02/05/2026 02/05/20 25, 05/10/2023, 01/25/2022 Alcohol/Substance Use Screening 03/24/2026 03/24/2025 Depression Screening 03/24/2026 03/24/2025, 03/24/20 Diabetes: Foot Exam 03/24/2026 03/24/2025, 03/24/2025, 03/24/2025, Additional history exists SDOH Screening 03/24/2026 03/24/2025 Tobacco Screening 03/24/2026 03/24/2025 Dental X-Ray: Full Mouth 05/11/2026 05/10/2023, 08/14 Eye Exam 12/19/2026 12/19/2024 DTaP/Tdap/Td Vaccines (3 - Td or Tdap) 02/12/2032 02/11/2022, 08/21/2009, 06/12/2003 Zoster Vaccines Completed 03/01/2022, 12/12, 10/13/2014 Hepatitis C Screening Completed 11/23/2022 Pneumococcal Vaccine: 50+ Years Completed 11/23/2022, 06/02/2017, 05/25/2016, Additional history exists Hepatitis B Vaccines Completed 09/01/2023, 03/27/2023, 02/22/2023 RSV Patients and Patients Aged 60 years or older Completed 09/18/2023 HIB Vaccines Aged Out No longer eligi [...] patient's age to complete this topic Meningococcal B Vaccine Aged Out No l onger eligible based on patient's age to complete [...] Author Blood Pressure < 140/90 Blood Pressure 110/62(2024 11:31 AM EDT) No Cait Isaac Hemoglobin A1c < 7 Result Component 6.6( 11:36 AM EDT) No Cait Isaac Procedures Procedure Name Priority Date/Time Associated Diagnosis Comments POCT GLYCATED HEMOGLOBIN, TOTAL Routine 03/24/2025 11:36 AM EDT Type 2 diabetes mellitus without complication, without long-term current use of insulin ([facility]) POCT GLUCOSE Routine 03/24/2025 11:35 AM EDT Type 2 diabetes mellitus without complication, without long-term current use of insulin ([facility]) CASE PRESENTATION, DETAILED AND EXTENSIVE TREATMENT PLANNING Routine 03/13/2025 9:00 AM EDT 8 EXTRACTION, ERUPTED TOOTH OR EXPOSED ROOT (ELEVATION/FORCEPS REMOVAL) Routine 03/13/2025 9:00 AM EDT 7 EXTRACTION, ERUPTED TOOTH OR EXPOSED ROOT (ELEVATION/FORCEPS REMOVAL) Routine 03/13/2025 9:00 AM EDT 6 EXTRACTION, ERUPTED TOOTH OR EXPOSED ROOT (ELEVATION/FORCEPS REMOVAL) Routine 03/13/2025 9:00 AM EDT Fractured tooth COMPREHENSIVE PERIODONTAL EVALUATION - NEW OR ESTABLISHED PATIENT Routine 02/04/2025 10:00 AM EDT Generalized gingival recession, severe Missing teeth, acquired Dental calculus Dental caries Tipped teeth Dental abscess Halitosis Acute gingival inflammation Advanced periodontitis Gingival bleeding Fractured tooth Encounter for dental examination PERIODIC ORAL EVALUATION - ESTABLISHED PATIENT Routine 02/04/2025 10:00 AM EDT Generalized gingival recession, severe Missing teeth, acquired Dental calculus Dental caries Tipped teeth Dental abscess Halitosis Acute gingival inflammation Advanced periodontitis Gingival bleeding Fractured tooth Encounter for dental examination 6,7,8 INTRAORAL - PERIAPICAL FIRST RADIOGRAPHIC IMAGE Routine 02/04/2025 10:00 AM EDT Generalized gingival recession, severe Missing teeth, acquired Dental calculus Dental caries Tipped teeth Dental abscess 11,12,13 INTRAORAL - PERIAPICAL EACH ADDITIONAL RADIOGRAPHIC IMAGE Routine 02/04/2025 10:00 AM EDT Generalized gingival recession, severe Missing teeth, acquired Dental calculus Dental caries Tipped teeth Dental abscess 24,25 INTRAORAL - PERIAPICAL EACH ADDITIONAL RADIOGRAPHIC IMAGE Routine 02/04/2025 10:00 AM EDT Generalized gingival recession, severe Missing teeth, acquired Dental calculus Dental caries Tipped teeth PROPHYLAXIS - ADULT Routine 02/04/2025 1 0:00 AM EDT Generalized gingival recession, severe Dental calculus Halitosis Acute gingival inflammation Advanced periodontitis Gingival bleeding BITEWINGS - 3 RADIOGRAPHIC IMAGES Routine 02/04/2025 10:00 AM EDT ORAL HYGIENE INSTRUCTIONS Routine 02/04/2025 10:00 AM EDT Generalized gingival recession, severe Missing teeth, acquired Dental calculus Dental caries Tipped teeth Dental abscess Halitosis Acute gingival inflammation Advanced periodontitis Gingival bleeding CASE PRESENTATION, DETAILED AND EXTENSIVE TREATMENT PLANNING Routine 02/04/2025 10:00 AM EDT Generalized gingival recession, severe Missing teeth, acquired Dental calculus Dental caries Tipped teeth Dental abscess Halitosis Acute gingival inflammation Advanced periodontitis Gingival bleeding Fractured tooth Encounter for dental examination BI MAMMOGRAM SCREENING TOMOSYNTHESIS BILATERAL Routine 09/26/2024 9:45 AM EST ALBUMIN, RANDOM URINE W/CREATININE Routine 02/16/2024 10:10 AM EDT Type 2 diabetes mellitus without complication, without long-term current use of insulin (CMS/HCC) LIPID PANEL, STANDARD Routine 02/16/2024 10:10 AM EDT Type 2 diabetes mellitus without complication, without long-term current use of insulin (CMS/HCC) INTRAORAL - COMPLETE SERIES OF RADIOGRAPHIC IMAGES Routine 05/10/2023 10:00 AM EDT Dental calculus Periodontal disease Missing teeth, acquired Generalized gingival recession, severe Tipped teeth Dental caries HEPATITIS C AB W/REFL TO HCV RNA, QN, PCR Routine 11/23/2022 9:58 AM EDT Health care maintenance from Last 3 Months or Most Recently Relevant to Health Maintenance Results * (ABNORMAL) POCT HGB A1C (03/24/2025 11:36 AM EDT) Hemoglobin A1C 6.6(A) 4.0 - 5.7 % QC Media Lot # [id number] Lot# Expiration Date , Blood 03/24/2025 11:3 6 AM EDT Kerrie Wagner MD POINT OF CARE TEST ENTER /EDIT ORDERABLES Final Result * POCT Glucose (03/24/2025 11:35 AM EDT) Glucose Blood, POC 121 60 - 200 mg/dL Comment:random QC Media Lot # [id number] Lot# Expiration Date [id number] Blood Capillary blood specimen / Unknown 03/24/2025 11:35 AM EDT Kerrie Wagner MD POINT OF CARE TEST ENTER /EDIT ORDERABLES Final Result * BI Mammogram Screening Tomosynthesis Bilateral (09/26/2024 9:45 AM EST) Anatomical Region Laterality Modality Breast Bilateral Mammography 09/26/2024 9:45 AM EST Narrative 10/04/2024 5:00 PM EST [facility] [address] [place] [address] Mammography Report Signed Patient: Alexandria Martinez MR#: [id number] : 1950 Acct:[id number] Age/Sex: 74 / F ADM Date: 09/26/24 Loc: HO.MAMMO Attending Dr: Alicia Astudillo NP Ordering Physician: Alicia Astudillo NP Results: 2Benign Findings Date of Service: 09/26/24 Follow Up: 1 Year From [facility] Mammogram Procedure(s): MM tomosynthesis screening BI Accession Number(s): [id number] cc: Alicia Astudillo NP EXAMINATION: MM SCREENING DIGITAL BREAST TOMOSYNTHESIS, BILATERAL CLINICAL INFORMATION: Screening. Asymptomatic. COMPARISON: Mammography: Comparison is made with available priors TECHNIQUE: Digital breast mammography with tomosynthesis is performed in both the craniocaudal and mediolateral oblique views along with computer-aided detection (CAD). FINDINGS: The breasts are heterogeneously dense, which may obscure small masses (ACR BI-RADS breast composition Category c). Bilateral marker clips. There are no significant masses, abnormal calcifications, or other abnormalities. MM/MM tomosynthesis screening BI IMPRESSION: No mammographic evidence of malignancy. ASSESSMENT: BI-RADS BI-RADS 2 - Benign Findings RECOMMENDATION: Routine annual mammography screening. 1 year F/U This examination should not preclude the clinical evaluation of a suspicious palpable abnormality. This patient's information was entered into a reminder system with a target due date for their next mammogram. Electronically signed by: Karla Goldberg DO 10/04/2024 04:57 PM EST Dictated By: Karla Goldberg DO Signed By: <Electronically signed by Karla Goldberg DO in OV> 10/04/24 1657 DD/ 0945 TD/TT: 09/26/24 1008 Sustainability Communicator: Procedure Note Donotuseinterpreter, Image - 10/04/2024 [place] [facility] [address] 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 Asymptomatic. COMPARISON: Mammography: Comparison is made with available priors TECHNIQUE: Digital breast mammography with tomosynthesis is performed in both the craniocaudal and mediolateral oblique views along with computer-aided detection (CAD). FINDINGS: The breasts are heterogeneously dense, which may obscure small masses (ACR BI-RADS breast composition Category c). Bilateral marker clips. There are no significant masses, abnormal calcifications, or other abnormalities. MM/MM tomosynthesis screening BI IMPRESSION: No mammographic evidence of malignancy. ASSESSMENT: BI-RADS BI-RADS 2 - Benign Findings RECOMMENDATION: Routine annual mammography screening. 1 year F/U This examination should not preclude the clinical evaluation of a suspicious palpable abnormality. This patient's information was entered into a reminder system with a target due date for their next mammogram. Electronically signed by: Karla Goldberg DO 10/04/2024 04:57 PM EST Dictated By: Karla Goldberg DO Signed By: <Electronically signed by Karla Goldberg DO in OV> 10/04/24 1657 DD/ 0945 TD/TT: 09/26/24 1008 Sustainability Communicator: Alicia Astudillo CARPET TILE LAYER IMG BI PROCEDURES Final Result * Albumin, Random Urine W/Creatinine (02/16/2024 10:10 AM EDT) Creatinine, Urine 132.99 mg/dL [facility] Microalbumin Urine 15.0 mg/L [facility] Microalbum Creatinine Ratio Ur 11.2 <30 ug/mg cr [facility] Comment:Albumin/Creatinine R atio Reference Ranges: Normal: < 30 ug/mg creatinine Microalbuminuria: 30 - 300 ug/mg creatinineClinical Albuminuria: > 300 ug/mg creatinine Urine (Urine, Random) 02/16/2024 10:10 AM EDT 02/16/2024 11:21 AM EDT us Alicia Astudillo CARPET TILE LAYER LAB URINE ORDERABLES Final Resu lt [facility] [address] [place] [phone] * Lipid Panel, Standard (02/16/2024 10:10 AM EDT) Triglycerides 101 <150 mg/dL [facility] Comment:Desirable Triglyceri de: less than 150 mg/dLBorderline High Triglyceride 150-199 mg/dLHigh Triglyceride: 200-499 mg/dLVery High Triglyceride: greater than or equal to 5OO mg/dL Cholesterol 146 <200 mg/dL [facility] Comment:Desirable Cholestero l: less than 200 mg/dLBorderline High Cholesterol: 200-239 mg/dLHigh Cholesterol: greater than 239 mg/dL LDL Cholesterol Calculated 65 <100 mg/dL [facility] Comment:Desirable LDL: less than 100 mg/dLNear Optimal/Above Optimal LDL: 110- 129 mg/dLBorderline High LDL: 130-159 mg/dLHigh LDL: 160-189 mg/dLVery High LDL: greater than or equal to 190 mg/dL HDL Cholesterol 61 >40 mg/dL [facility] Comment:Desirable HDL: great er than 40 mg/dL Note: This HDL assay may give artificially low results in patients with liver disease. Blood Venous blood specimen / Unknown 02/16/2024 10:10 AM EDT 02/16/2024 11:07 AM EDT [facility] BLOOD ORDERABLES Final Resu lt [facility] [address] [place] [address] [phone] * Hepatitis C Antibody with Reflex to HCV, RNA, Quantitative, Real-Time PCR (11/23/2022 9:58 AM EDT) Hepatitis C Antibody NON-REACT CRISS NON-REACT CRISS [facility] [place] [facility] Index 0.09 <1.00 [facility] [place] [facility] Comment: HCV antibody was non-reactive. There is no laboratory evidence of HCV infection. In most cases, no further action is required. However, if recent HCV exposure is suspected, a test for HCV RNA (test code 74428) is suggested. For additional information please refer to http://education.Cobase/faq/TKL81y4 (This link is being provided for informational/ educational purposes only.) Blood Venous blood specimen / Unknown 11/23/2022 9:58 AM EDT 11/23/2022 9:58 AM EDT Narrative [facility] - 11/24/2022 6:36 PM EDT FASTING:NO FASTING: NO Fr[facility] BLOOD ORDERABLES Final Result Performing Organization Address City/[facility]/ZIP Co de Phone Number [facility] [address], [place] [address] [facility] [place] [employer] [address] [place] [address] from Last 3 Months or Most Recently Relevant to Health Maintenance Insurance [facility] CARE HOME OPTIONS (HMO D-SNP) DENTAL [facility] 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
[2025-03-26 12:00] LABS: Alanine Aminotransferase 18 U/L (0-31); Albumin Level 4.5 g/dL (3.5-5.0); Alkaline Phosphatase 54 U/L (39-117); Anion Gap 12 (12-20); Aspartate Amino Transferase 25 U/L (5-31); Blood Urea Nitrogen 17 mg/dL (9-16); Calcium 9.6 mg/dL (8.4-10.2); Carbon Dioxide 28 mmol/L (22-29); Chloride 106 mmol/L (96-108); Cholesterol 142 mg/dL (<200); Estimated Glomerular Filt Rate > 60; HDL Cholesterol 59 mg/dL (>40); Potassium 3.9 mmol/L (3.3-5.1); Sodium 142 mmol/L (135-145); Total Protein 7.3 g/dL (6.5-8.0); Triglycerides 91 mg/dL (<150)
[2025-03-26 12:03] LABS: Microalbum/Creatinine Ratio Ur 15.3 ug/mg cr (<30)
[2025-03-26 12:56] LABS: Reflex LDLD? No
== END 2025-03-26 09:26 | disposition home or self-care (01) ==
LOC: HO.HHCL 09:25
PROVIDERS: PCP Internal Medicine; Visit Provider Internal Medicine
DX: I10 Essential (primary) hypertension (principal); E11.9 Type 2 diabetes mellitus without complications
CPT/HCPCS: 36415; 80053; 80061; 82043; 82306; 82570; 84443